=== PATIENT | female | born 1950 | race American Indian/Alaskan Native ===

== ENCOUNTER 2016-11-27 21:58 | Emergency (ER) | payer MEDICARE ==
[2016-11-27 22:15] VITALS: BP 144/76
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
[2016-11-28] MEDS ORDERED: NORCO 5/325 ONE (02:17)
[2016-11-28] MEDS ORDERED: NORCO 5/325 PO ONE (02:19)
== END 2016-11-28 02:06 | disposition home or self-care (01) ==
LOC: ED 21:58
DX: M17.9 Osteoarthritis of knee, unspecified (principal); G89.29 Other chronic pain; H66.002 Acute suppurative otitis media without spontaneous rupture of ear drum, left ear; I10 Essential (primary) hypertension; I25.2 Old myocardial infarction; K21.9 Gastro-esophageal reflux disease without esophagitis; M19.90 Unspecified osteoarthritis, unspecified site; J45.909 Unspecified asthma, uncomplicated; Z90.49 Acquired absence of other specified parts of digestive tract; Z90.710 Acquired absence of both cervix and uterus; Z98.51 Tubal ligation status; Z87.891 Personal history of nicotine dependence; Z79.82 Long term (current) use of aspirin
CPT/HCPCS: 99282

== ENCOUNTER 2017-02-03 18:47 | Emergency (ER) | payer MEDICARE ==
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
[2017-02-03] MEDS ORDERED: MORPHINE IM ONE (23:26)
[2017-02-03] MEDS ORDERED: DECADRON IM ONE (23:26)
[2017-02-03] MEDS ORDERED: FLEXERIL PO ONE (23:27)
[2017-02-04 00:57] VITALS: BP 142/84
== END 2017-02-04 00:58 | disposition home or self-care (01) ==
LOC: ED 18:47
DX: M54.5 Low back pain (principal); I10 Essential (primary) hypertension; I25.2 Old myocardial infarction; E11.9 Type 2 diabetes mellitus without complications; K21.9 Gastro-esophageal reflux disease without esophagitis; M19.90 Unspecified osteoarthritis, unspecified site; J45.909 Unspecified asthma, uncomplicated; G89.29 Other chronic pain; Z79.82 Long term (current) use of aspirin; Z88.8 Allergy status to other drugs, medicaments and biological substances; Z88.1 Allergy status to other antibiotic agents; W57.XXXA Bitten or stung by nonvenomous insect and other nonvenomous arthropods, initial encounter; Y93.89 Activity, other specified; Y99.9 Unspecified external cause status; Y92.89 Other specified places as the place of occurrence of the external cause
CPT/HCPCS: 96372; 99282; J1100; J2270

== ENCOUNTER 2017-03-22 18:46 | Emergency (ER) | payer MEDICARE ==
[2017-03-22 20:51] LABS: Basophils % (Auto) 0.6 % (0.0-1.8); Eosinophils % (Auto) 2.1 % (0.0-4.3); Hematocrit 39.6 % (30.3-42.9); Hemoglobin 12.5 gm/dl (10.1-14.3); Mean Corpuscular HGB Conc 32 % (30-34); Mean Corpuscular Volume 73 fl (79-97); Platelet Count 330 K/mm3 (140-440); Red Blood Count 5.45 M/mm3 (3.65-5.03); Red Cell Distribution Width 15.6 % (13.2-15.2); White Blood Count 7.9 K/mm3 (4.5-11.0)
[2017-03-22 20:53] LABS: Mean Corpuscular Hemoglobin 23 pg (28-32)
[2017-03-22 21:03] LABS: Alanine Aminotransferase 19 units/L (7-56); Albumin 4.1 g/dL (3.9-5); Albumin/Globulin Ratio 1.1 %; Alkaline Phosphatase 79 units/L (35-129); Anion Gap 17 mmol/L; BUN/Creatinine Ratio 31.66; Blood Urea Nitrogen 19 mg/dL (7-17); Calcium 9.6 mg/dL (8.4-10.2); Carbon Dioxide 28 mmol/L (22-30); Chloride 98.7 mmol/L (98-107); Glucose 87 mg/dL (65-100); Lipase 49 units/L (13-60); Potassium 4.5 mmol/L (3.6-5.0); Sodium 139 mmol/L (137-145); Total Protein 7.7 g/dL (6.3-8.2)
[2017-03-22 22:00] LABS: Bilirubin,Urine NEG (Negative); Blood,Urine NEG (Negative); Ketones,Urine NEG (Negative); Leukocyte Esterase,Urine TR (Negative); Mucus,Urine FEW /HPF; Nitrite,Urine NEG (Negative); Protein,Urine <15 mg/dL mg/dL (Negative); Urobilinogen,Urine < 2.0 mg/dL (<2.0)
[2017-03-22] MEDS ORDERED: ZOFRAN IV ONE (23:47)
[2017-03-22] MEDS ORDERED: NACL 0.9% 1000 ML 1,000 ML IV ONE (23:47)
[2017-03-23] MEDS ORDERED: ZOFRAN IV ONE (01:24)
[2017-03-23] MEDS ORDERED: TORADOL IV ONE (01:24)
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
[2017-03-23 01:50] VITALS: BP 132/73
== END 2017-03-23 04:09 | disposition home or self-care (01) ==
LOC: ED 18:46
DX: R11.2 Nausea with vomiting, unspecified (principal); I10 Essential (primary) hypertension; I25.2 Old myocardial infarction; K21.9 Gastro-esophageal reflux disease without esophagitis; J45.909 Unspecified asthma, uncomplicated
CPT/HCPCS: 36415; 80053; 81001; 83690; 85025; 96361; 96374; 96375; 99283; J1885; J2405; J7030

== ENCOUNTER 2017-04-28 09:23 | Emergency (ER) | payer MEDICARE ==
[2017-04-28 09:40] VITALS: BP 109/59
[2017-04-28] MEDS ORDERED: NORCO 10/325 PO ONE (11:56)
[2017-04-28] MEDS ORDERED: FLEXERIL PO ONE (11:56)
[2017-04-28] MEDS ORDERED: TORADOL IM ONE (11:56)
[2017-04-28] MEDS ORDERED: ZOFRAN ODT PO ONE (12:35)
[2017-04-28] MEDS ORDERED: MORPHINE IM ONE (12:35)
--- NOTE | 2017-04-28 12:44 | XRay Report ---
Right knee 3 views. Findings: There is mild narrowing of the joint space especially medially. Bony mineralization is normal. There are no fractures or other acute findings. Impression: Mild osteoarthritis.
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
== END 2017-04-28 14:01 | disposition home or self-care (01) ==
LOC: ED 09:23
DX: M17.11 Unilateral primary osteoarthritis, right knee (principal); I10 Essential (primary) hypertension; K21.9 Gastro-esophageal reflux disease without esophagitis; J45.909 Unspecified asthma, uncomplicated; I25.2 Old myocardial infarction; Z87.891 Personal history of nicotine dependence; Z79.82 Long term (current) use of aspirin; Z88.0 Allergy status to penicillin; Z88.1 Allergy status to other antibiotic agents; Z88.8 Allergy status to other drugs, medicaments and biological substances
CPT/HCPCS: 73562; 96372; 99283; J1885; J2270; Q0162

== ENCOUNTER 2017-06-02 12:50 | Emergency (ER) | payer MEDICARE ==
[2017-06-02] MEDS ORDERED: PERCOCET 5/325 PO ONE (16:08)
[2017-06-02] MEDS ORDERED: ZOFRAN ODT PO ONE (16:10)
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
[2017-06-02 18:14] VITALS: BP 145/72
== END 2017-06-02 18:13 | disposition home or self-care (01) ==
LOC: ED 12:50
DX: M25.569 Pain in unspecified knee (principal); M54.9 Dorsalgia, unspecified; G89.29 Other chronic pain
CPT/HCPCS: 99282; Q0162

== ENCOUNTER 2017-06-10 12:06 | Emergency (ER) | payer MEDICARE ==
[2017-06-10] MEDS ORDERED: PERCOCET 5/325 PO ONE (16:55)
--- NOTE | 2017-06-10 18:02 | XRay Report ---
FINAL REPORT PROCEDURE: XR SPINE LUMBOSACRAL 2-3V TECHNIQUE: Lumbar spine, three views HISTORY: lower back pain chronic COMPARISON: No prior studies are available for comparison. FINDINGS: There is 9 millimeters anterolisthesis of L5 on S1, with adjacent significant endplate sclerosis and disc space narrowing. There may be pars interarticularis defects of L5, which would be better assessed with oblique views. No scoliosis. There is note of unfused posterior elements of L5. IMPRESSION: 9 millimeters anterolisthesis of L5 on S1 with associated significant degenerative disc changes. Possible L5 pars interarticularis defects, which would be better assessed with oblique views.
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
[2017-06-10 18:32] LABS: Urine Drugs of Abuse Note Disclamer
[2017-06-10 18:41] VITALS: BP 166/79
--- NOTE | 2017-06-11 11:16 | Vascular Lab Report ---
LEFT UPPER EXTREMITY VENOUS DUPLEX: REASON FOR EXAM: Pain of the left upper extremity COMMENTS ON THE LEFT: All arm veins visualized are freely compressible without evidence of internal echogenicity. The subclavian and internal jugular veins are free of thrombus. Flow is spontaneous and phasic throughout. COMMENTS ON THE RIGHT: The subclavian and internal jugular veins are free of thrombus. IMPRESSION: No evidence of acute or chronic deep venous thrombosis in the left upper extremity.
== END 2017-06-10 18:55 | disposition home or self-care (01) ==
LOC: ED 12:06
DX: M15.3 Secondary multiple arthritis (principal); G89.29 Other chronic pain; I10 Essential (primary) hypertension; I25.2 Old myocardial infarction; K21.9 Gastro-esophageal reflux disease without esophagitis; J45.909 Unspecified asthma, uncomplicated; Z87.891 Personal history of nicotine dependence; Z79.82 Long term (current) use of aspirin; Z88.1 Allergy status to other antibiotic agents; Z88.8 Allergy status to other drugs, medicaments and biological substances
CPT/HCPCS: 72100; 80307

== ENCOUNTER 2017-11-06 15:33 | Emergency (ER) | payer MEDICARE ==
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
[2017-11-06] MEDS ORDERED: DUONEB *Not for PRN Use IH ONE (20:49)
--- NOTE | 2017-11-06 20:49 | Emergency Department Report ---
Chief Complaint: Upper Respiratory Infection Stated Complaint: VOMITING/DIARRHEA/CHEST COLD Time Seen by Provider: 11/06/17 20:12 - HPI History of Present Illness: 67-year-old female past medical history arthritis asthma GERD MO hypertension kidney stones angina CAD presents with complaint of 4-5 days of bodyaches nasal congestion nausea and diarrhea. Patient awake alert and oriented 3 complaining of slightly productive cough and nasal drainage. - ROS Review of Systems: 4-5 days of body aches, upper respiratory symptoms - Exam Vital Signs: Vital Signs 11/06/17 17:22 Temperature 98.4 F Pulse Rate 103 H Respiratory 16 Rate Blood Pressure 119/71 O2 Sat by Pulse 97 Oximetry Physical Exam: Wheezing on auscultation bilaterally MSE screening note: Focused history and physical exam performed. Due to findings the following was ordered: Screening Assessment/Plan/Differential Dx: Possible flu illness, asthma exacerbation 1- This initial assessment/diagnostic orders/clinical plan/ treatment(s) is/are subject to change based on pt's health status, clinical progression and re- assessment by fellow clinical providers in the ED. Further treatment and workup at subsequent clinical provers discretion. Patient/guardians urged not to elope from ED as their condition may be serious if not clinically assessed and managed. 2-flu swab sent, chest x-ray, labs 3-nebulizer treatment, oral fluid resuscitation ED Disposition for MSE Condition: Stable Referrals: SANJAY YAP MD [Primary Care Provider] - 3-5 Days
--- NOTE | 2017-11-06 20:59 | XRay Report ---
FINAL REPORT EXAM: XR CHEST ROUTINE 2V HISTORY: persistent cough worsening TECHNIQUE: 2 views of the chest. PRIORS: 09/30/2016 FINDINGS: The cardiomediastinal silhouette appears normal. The lungs are clear. The bones and soft tissues are unremarkable. IMPRESSION: No evidence of acute cardiopulmonary disease
[2017-11-06 21:27] LABS: Hematocrit 43.3 % (30.3-42.9); Hemoglobin 13.4 gm/dl (10.1-14.3); Lymphocytes # (Auto) 2.2 K/mm3 (1.2-5.4); Lymphocytes % (Auto) 46.2 % (13.4-35.0); Mean Corpuscular HGB Conc 31 % (30-34); Mean Corpuscular Volume 72 fl (79-97); Monocytes # (Auto) 0.6 K/mm3 (0.0-0.8); Monocytes % (Auto) 13.2 % (0.0-7.3); Platelet Count 304 K/mm3 (140-440); Red Blood Count 6.04 M/mm3 (3.65-5.03)
[2017-11-06 21:28] LABS: Mean Corpuscular Hemoglobin 22 pg (28-32)
[2017-11-06 21:49] LABS: BUN/Creatinine Ratio 28; Blood Urea Nitrogen 25 mg/dL (7-17); Calcium 9.7 mg/dL (8.4-10.2); Hemolysis Index 3
[2017-11-06] MEDS ORDERED: ATROVENT IH ONE (22:03)
[2017-11-06] MEDS ORDERED: XOPENEX IH ONE (22:03)
[2017-11-06] MEDS ORDERED: NACL 0.9% 1000 ML 1,000 ML IV ONE (22:17)
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
[2017-11-06] MEDS ORDERED: TESSALON PERLES PO ONE (22:19)
[2017-11-06] MEDS ORDERED: NORCO 5/325 PO ONE (22:54)
[2017-11-07 06:54] VITALS: BP 137/61
== END 2017-11-06 23:40 | disposition home or self-care (01) ==
LOC: ED 15:33
DX: J09.X2 Influenza due to identified novel influenza A virus with other respiratory manifestations (principal); I10 Essential (primary) hypertension; I25.2 Old myocardial infarction; K21.9 Gastro-esophageal reflux disease without esophagitis; Z87.891 Personal history of nicotine dependence
CPT/HCPCS: 36415; 71046; 80048; 82550; 85025; 87400; 87491; 93005; 93010; 94640; 94644; 96360; 99284; J7030

== ENCOUNTER 2017-11-21 11:42 | Observation (INO) | payer MEDICARE ==
[2017-11-21] MEDS ORDERED: ASPIRIN PO ONE (12:09)
[2017-11-21 13:09] LABS: Basophils # (Auto) 0.1 K/mm3 (0.0-0.1); Basophils % (Auto) 1.1 % (0.0-1.8); Eosinophils # (Auto) 0.1 K/mm3 (0.0-0.4); Eosinophils % (Auto) 1.2 % (0.0-4.3); Hematocrit 40.2 % (30.3-42.9); Lymphocytes # (Auto) 1.9 K/mm3 (1.2-5.4); Lymphocytes % (Auto) 31.5 % (13.4-35.0); Mean Corpuscular HGB Conc 32 % (30-34); Mean Corpuscular Hemoglobin 23 pg (28-32); Mean Corpuscular Volume 72 fl (79-97); Monocytes # (Auto) 0.6 K/mm3 (0.0-0.8); Monocytes % (Auto) 10.2 % (0.0-7.3); Platelet Count 368 K/mm3 (140-440); Red Blood Count 5.59 M/mm3 (3.65-5.03); Red Cell Distribution Width 16.1 % (13.2-15.2)
[2017-11-21 13:27] LABS: BUN/Creatinine Ratio 13; Blood Urea Nitrogen 8 mg/dL (7-17); Calcium 9.5 mg/dL (8.4-10.2); Hemolysis Index 8
[2017-11-21] MEDS ORDERED: ZOFRAN IM ONE (15:29)
[2017-11-21] MEDS ORDERED: MORPHINE IM ONE (15:29)
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
[2017-11-21] MEDS ORDERED: ALUM-MAG HYDROX-SIMETH 200-200-20MG/5ML PO ONE (17:42)
--- NOTE | 2017-11-21 17:42 | XRay Report ---
FINAL REPORT EXAM: XR CHEST 1V AP HISTORY: chest pain TECHNIQUE: AP portable view of the chest PRIORS: CXR 11/06/2017, 09/30/2016 FINDINGS: Lines, tubes, and devices: N/A Lungs and pleura: Trachea is normal in position. New markings in the right lung base are suspicious for atelectasis or pneumonia. There is no evidence for pleural effusion, vascular congestion, or pneumothorax. Cardiomediastinal silhouette: Cardiac and mediastinal silhouettes are unremarkable. Other: Bony structures are intact. IMPRESSION: New markings in the right lung base suspicious for atelectasis or pneumonia.
[2017-11-21] MEDS ORDERED: PEPCID PO ONE (17:55)
[2017-11-21] MEDS ORDERED: NITRO-BID 2% TP ONE (20:22)
[2017-11-21] MEDS ORDERED: MILK OF MAGNESIA PO ONE (21:36)
[2017-11-21] MEDS ORDERED: NITROSTAT SL PRN (21:41)
[2017-11-21] MEDS ORDERED: SODIUM CHLORIDE FLUSH SYRINGE 10 ML IV PRN (21:41)
[2017-11-21] MEDS ORDERED: MILK OF MAGNESIA ONE (21:45)
[2017-11-21] MEDS ORDERED: ZOFRAN IV PRN (21:55)
[2017-11-21] MEDS ORDERED: TESSALON PERLES PO PRN (22:03)
[2017-11-21] MEDS ORDERED: PROAIR IH PRN (22:03)
[2017-11-21 22:41] LABS: BUN/Creatinine Ratio 17; Blood Urea Nitrogen 10 mg/dL (7-17); Calcium 8.9 mg/dL (8.4-10.2); Hemolysis Index 8
[2017-11-22] MEDS ORDERED: PROVENTIL IH PRN (00:13)
[2017-11-22] MEDS: DILAUDID IV PRN ×3 (00:31→14:13)
[2017-11-22 01:07] LABS: Creatine Kinase MB 1.3 ng/mL (0.0-4.0)
[2017-11-22] MEDS: NITRO-BID 2% TP SCH ×4 (06:28→17:27)
[2017-11-22 06:44] LABS: Creatine Kinase MB 1.1 ng/mL (0.0-4.0)
--- NOTE | 2017-11-22 08:49 | History and Physical Report ---
CHIEF COMPLAINT: Chest pain. HISTORY OF PRESENT ILLNESS: This is a 67-year-old female who said she has been having chest pain since a day prior to presentation with pain radiating to the back and was associated with shortness of breath. There is a history of nausea, but no vomiting. There is also history of cough. The patient said the pain feels like the pain of angina, presented to the Emergency Room. There is history of diaphoresis, but no history of dizziness. The patient was evaluated and presented for admission. PAST MEDICAL HISTORY: Pertinent for hypertension, coronary artery disease status post myocardial infarct, diabetes mellitus, gastroesophageal reflux disease, osteoarthritis, kidney stones, asthma. PAST SURGICAL HISTORY: Pertinent for cholecystectomy, right eye surgery, hysterectomy. There is a procedure on the heart and tubal ligation as well as carpal tunnel surgery with colonic polyps. FAMILY HISTORY: Noncontributory. SOCIAL HISTORY: The patient is a former smoker, but does not smoke currently. Does not use illicit drugs and does not drink alcohol. MEDICATIONS: The patient is on thiazide 25 mg by mouth daily, [place] 7.5/325 mg 1 by mouth every 6 hours as needed for pain, Protonix 40 mg by mouth daily as well as albuterol inhalers 2 puffs 4 times a day, benztropine 100 mg by mouth 3 times a day as well as [place] 5/325, 1-2 by mouth every 6 hours. The patient is also on Tamiflu 75 mg by mouth twice daily. ALLERGIES: THE PATIENT IS ALLERGIC TO AZITHROMYCIN, BUTORPHANOL TARTRATE, CYCLOBENZAPRINE, AND OTHER MEDICATIONS THAT ARE NOT LISTED. REVIEW OF SYSTEMS: CONSTITUTIONAL: There is no fever, no chills. Diaphoresis present. HEENT: There is no headache or sore throat. CARDIOVASCULAR: Chest pain present. No orthopnea. RESPIRATORY: Shortness of breath present. Cough present. GASTROINTESTINAL: There is nausea, but no vomiting, no abdominal pain, diarrhea or constipation. NEUROLOGICAL: There is no numbness, no dizziness, no altered mental status. MUSCULOSKELETAL: Show no joint pain or swelling. DERMATOLOGICAL: There is no skin rash or itching. GENITOURINARY: There is no dysuria, hematuria or flank pain. Rest of system review is normal. PHYSICAL EXAMINATION: GENERAL: At the time of exam, the patient was found to be alert, oriented x 3 in mild due to chest. VITAL SIGNS: Shows normal temperature with pulse of 82, blood pressure 122/86, O2 sat of 99% in room air. HEENT: Showed pupils to be equal, round, reactive to light and accommodation. Extraocular muscles are intact. NECK: Supple with no JVD or carotid bruit. CARDIOVASCULAR: Showed normal first and second heart sounds with no gallops or murmurs. RESPIRATORY: Show good air entry on both sides of the lung with no abnormal breath sounds. GASTROINTESTINAL: Show abdomen to be full, soft, nontender with no organomegaly or rigidity. NEUROLOGICAL: Shows no focal deficit. MUSCULOSKELETAL: Show no joint swelling or tenderness. DERMATOLOGICAL: Show no change, no skin rash or itching. GENITOURINARY: Showing no costovertebral angle tenderness. PERTINENT LABORATORY AND IMAGING STUDIES: The patient had chest x-ray done that shows new markings in the right lung base suspicious atelectasis or pneumonia. The patient's lab shows CBC with normal white count, normal hemoglobin, normal hematocrit with CBC differential being unremarkable. The patient's D-dimer level came back normal. Chemistry was unremarkable. First level of troponin came back normal. Brain natriuretic peptide was unremarkable. DIAGNOSIS: Chest pain. PLAN: The patient will be admitted to telemetry using chest protocol. Will have serial cardiac enzymes done q. 6 hours x 2 more levels. The patient will be on nitro paste half-inch to anterior chest wall 4 times a day and will be on sublingual nitroglycerin for breakthrough chest pain. The patient will be on Dilaudid 1 mg every 4 hours IV as needed for pain and IV Zofran 4 mg every 6 hours for nausea and vomiting. The patient will be on p.r.n. medications like Tylenol 650 mg by mouth every 4 hours as needed for fever and headache and will be on home medications as shown in the medication reconciliation section. The patient will also be on aspirin 325 mg by mouth daily and will remain n.p.o. for pharmacological stress test in the morning. The patient will also be on oxygen by nasal cannula at 2 liters per minute per chest pain protocol. JOB# [id number] OCN/NTS
[2017-11-22] MEDS ORDERED: PROTONIX PO SCH (10:00)
[2017-11-22] MEDS ORDERED: LOVENOX SUB-Q SCH (10:00)
[2017-11-22] MEDS ORDERED: ECOTRIN PO SCH (10:00)
[2017-11-22] MEDS ORDERED: HCTZ PO SCH (10:00)
[2017-11-22] MEDS: TAMIFLU PO SCH ×2 (10:17→21:58)
[2017-11-22] MEDS ORDERED: LEVAQUIN PO SCH (12:00)
--- NOTE | 2017-11-22 17:02 | Progress Note ---
Assessment and Plan Assessment and plan: 67-year-old female recent diagnosis of influenza presents to the hospital with generalized chest wall pain reproducible associated with cough had been diagnosed with influenza and started on Tamiflu but did not take the medication on discharge to previous admission. Now with suspected atelectasis versus pneumonia Atypical chest pain likely costochondritis Resolving post-influenza pneumonia Hypertension CAD GERD Osteoarthritis Plan Continue supportive care Pain control Start on Levaquin Chest x-ray reviewed shows possible atelectasis versus pneumonia will also add incentive spirometer Anticipated discharge in a.m. Lower extremity Doppler did not reveal any DVT Extensive counseling provided to the patient greater than 15 minutes and remained to be compliant with medications. Resume appropriate home medications History Interval history: Patient seen and examined this morning reports that she did not take the Tamiflu that was ordered for her previously because she does not believe this medications work she prefers herbal medications. But she likes to Dilaudid as it is the only one that takes away her pain. She states "I raise my hand on thank God of Viagra before as shOT and it took away my pain" Hospitalist Physical - Physical exam Narrative exam: VITAL SIGNS: Reviewed. GENERAL: The patient appeared well nourished and normally developed. Vital signs as documented. HEAD: No signs of head trauma. EYES: Pupils are equal. Extraocular motions intact. EARS: Hearing grossly intact. MOUTH: Oropharynx is normal. NECK: No adenopathy, no JVD. CHEST: Chest with clear breath sounds bilaterally. No wheezes, rales, or rhonchi. CARDIAC: Regular rate and rhythm. S1 and S2, without murmurs, gallops, or rubs. VASCULAR: No Edema. Peripheral pulses normal and equal in all extremities. ABDOMEN: Soft, without detectable tenderness. No sign of distention. No rebound or guarding, and no masses palpated. Bowel Sounds normal. MUSCULOSKELETAL: Generalized tenderness in the musculoskeletal area across the chest on palpation Good range of motion of all major joints. Extremities without clubbing, cyanosis. Trace edema of the right lower extremity . NEUROLOGIC EXAM: Alert and oriented x 3. No focal sensory or strength deficits. Speech normal. Follows commands. PSYCHIATRIC: Mood normal. SKIN: No rash or lesions. - Constitutional Vitals: Temp Pulse Resp BP Pulse Ox 97.9 F 77 16 136/80 93 11/22/17 12:45 11/22/17 12:45 11/22/17 09:00 11/22/17 12:45 11/22/17 09:00 Results - Labs CBC & Chem 7: 11/21/17 12:52 11/21/17 22:27 Labs: Laboratory Last Values WBC 6.1 K/mm3 (4.5-11.0) 11/21/17 12:52 RBC 5.59 M/mm3 (3.65-5.03) H 11/21/17 12:52 Hgb 13.0 gm/dl (10.1-14.3) 11/21/17 12:52 Hct 40.2 % (30.3-42.9) 11/21/17 12:52 MCV 72 fl (79-97) L 11/21/17 12:52 MCH 23 pg (28-32) L 11/21/17 12:52 MCHC 32 % (30-34) 11/21/17 12:52 RDW 16.1 % (13.2-15.2) H 11/21/17 12:52 Plt Count 368 K/mm3 (140-440) 11/21/17 12:52 Lymph % (Auto) 31.5 % (13.4-35.0) 11/21/17 12:52 [place] % (Auto) 10.2 % (0.0-7.3) H 11/21/17 12:52 Eos % (Auto) 1.2 % (0.0-4.3) 11/21/17 12:52 Baso % (Auto) 1.1 % (0.0-1.8) 11/21/17 12:52 Lymph # 1.9 K/mm3 (1.2-5.4) 11/21/17 12:52 Titus # 0.6 K/mm3 (0.0-0.8) 11/21/17 12:52 Eos # 0.1 K/mm3 (0.0-0.4) 11/21/17 12:52 Baso # 0.1 K/mm3 (0.0-0.1) 11/21/17 12:52 Seg Neutrophils % 56.0 % (40.0-70.0) 11/21/17 12:52 Seg Neutrophils # 3.4 K/mm3 (1.8-7.7) 11/21/17 12:52 D-Dimer 222.79 ng/mlDDU (0-234) 11/21/17 17:46 Sodium 140 mmol/L (137-145) 11/21/17 22:27 Potassium 3.7 mmol/L (3.6-5.0) 11/21/17 22:27 Chloride 97.4 mmol/L (98-107) L 11/21/17 22:27 Carbon Dioxide 31 mmol/L (22-30) H 11/21/17 22:27 Anion Gap 15 mmol/L 11/21/17 22:27 BUN 10 mg/dL (7-17) 11/21/17 22:27 Creatinine 0.6 mg/dL (0.7-1.2) L 11/21/17 22:27 Estimated GFR > 60 ml/min 11/21/17 22:27 BUN/Creatinine Ratio 17 % 11/21/17 22:27 Glucose 118 mg/dL (65-100) H 11/21/17 22:27 Calcium 8.9 mg/dL (8.4-10.2) 11/21/17 22:27 Total Creatine Kinase 77 units/L (30-135) 11/22/17 05:19 CK-MB (CK-2) 1.1 ng/mL (0.0-4.0) 11/22/17 05:19 Troponin T < 0.010 ng/mL (0.00-0.029) 11/22/17 13:08 NT-Pro-B Natriuret Pep 39.10 pg/mL (0-900) 11/21/17 17:46
[2017-11-23 04:45] VITALS: BP 119/59
[2017-11-23] MEDS: NITRO-BID 2% TP SCH (06:15)
--- NOTE | 2017-11-23 09:27 | Discharge Summary ---
Providers - Providers Date of Admission: 11/21/17 21:18 Attending physician: MUNA RODRIGUEZ MD 11/21/17 Consult to Cardiac Rehabilitation [CONS] Routine Reason For Exam: Phase I Primary care physician: DEBBI MATA Hospitalization Reason for admission: chest pain Condition: Stable Hospital course: 67-year-old female recent diagnosis of influenza presents to the hospital with generalized chest wall pain reproducible associated with cough had been diagnosed with influenza and started on Tamiflu but did not take the medication on discharge to previous admission. Now with suspected atelectasis versus pneumonia. patient was treated with antiobiodiccs and also a few hours. She likely will go home with a Peg; Discharge diagnosis Atypical chest pain likely costochondritis Resolving post-influenza pneumonia Hypertension CAD GERD Osteoarthritis Disposition: TO HOME OR SELFCARE Time spent for discharge: 35 mins Core Measure Documentation - Palliative Care Palliative Care/ Comfort Measures: Not Applicable - Core Measures Any of the following diagnoses?: none - VTE Discharge Requirements Deep Vein Thrombosis/Pulmonary Embolism Present on Admission: No Exam - Physical Exam Narrative exam: VITAL SIGNS: Reviewed. GENERAL: The patient appeared well nourished and normally developed. Vital signs as documented. HEAD: No signs of head trauma. EYES: Pupils are equal. Extraocular motions intact. EARS: Hearing grossly intact. MOUTH: Oropharynx is normal. NECK: No adenopathy, no JVD. CHEST: Chest with clear breath sounds bilaterally. No wheezes, rales, or rhonchi. CARDIAC: Regular rate and rhythm. S1 and S2, without murmurs, gallops, or rubs. VASCULAR: No Edema. Peripheral pulses normal and equal in all extremities. ABDOMEN: Soft, without detectable tenderness. No sign of distention. No rebound or guarding, and no masses palpated. Bowel Sounds normal. MUSCULOSKELETAL: Generalized tenderness in the musculoskeletal area across the chest on palpation Good range of motion of all major joints. Extremities without clubbing, cyanosis. Trace edema of the right lower extremity . NEUROLOGIC EXAM: Alert and oriented x 3. No focal sensory or strength deficits. Speech normal. Follows commands. PSYCHIATRIC: Mood normal. SKIN: No rash or lesions. - Constitutional Vitals: Temp Pulse Resp BP Pulse Ox 97.5 F L 79 19 119/59 97 11/23/17 04:41 11/23/17 08:20 11/23/17 04:41 11/23/17 04:41 11/23/17 04:41 Plan Activity: advance as tolerated, fall precautions Diet: low fat Special Instructions: record daily weights, record daily BP diary, smoking cessation Follow up with: DEBBI MATA MD [Primary Care Provider] - 7 Days KVNG CASTELLANOS MD [Staff Physician] - 7 Days MOIRA FAULKNER MD [Staff Physician] - 7 Days Prescriptions: Benzonatate [Tessalon Perles] 100 mg PO TID PRN #14 capsule PRN Reason: Cough Famotidine [Pepcid] 20 mg PO BID #60 tablet Levofloxacin [Levaquin TAB] 750 mg PO Q24HR #5 tablet Oseltamivir [Tamiflu] 75 mg PO BID #6 capsule traMADol [Ultram] 50 mg PO Q6HR PRN #14 tablet PRN Reason: Pain
--- NOTE | 2017-11-25 09:06 | Vascular Lab Report ---
RIGHT UPPER EXTREMITY VENOUS DUPLEX: REASON FOR EXAM: Deep venous thrombus of the right upper extremity COMMENTS ON THE RIGHT: There is an acute partially occlusive short segment superficial venous thrombus in the right upper arm cephalic vein near the antecubital fossa. The remaining veins visualized are freely compressible without evidence of internal echogenicity. Spontaneous and phasic flow is present proximally. COMMENTS ON THE LEFT: The subclavian and internal jugular veins are free of thrombus. IMPRESSION: No evidence of acute or chronic deep venous thrombosis in the right upper extremity. There is a acute short segment superficial venous thrombus in the right upper arm cephalic vein near the antecubital fossa. This is near the patient's IV site.
== END 2017-11-23 11:42 | disposition home or self-care (01) ==
LOC: ED 11:42 → 3A 21:18 → INTOOBSV 21:18 → 4A 22:40
PROVIDERS: ADMIT Internal Medicine; ATTEND Internal Medicine
DX: R07.89 Other chest pain (principal); I10 Essential (primary) hypertension; I25.10 Atherosclerotic heart disease of native coronary artery without angina pectoris; I25.2 Old myocardial infarction; E11.9 Type 2 diabetes mellitus without complications; K21.9 Gastro-esophageal reflux disease without esophagitis; M19.90 Unspecified osteoarthritis, unspecified site; J45.909 Unspecified asthma, uncomplicated; Z87.442 Personal history of urinary calculi; Z87.891 Personal history of nicotine dependence; Z90.710 Acquired absence of both cervix and uterus; Z90.49 Acquired absence of other specified parts of digestive tract
CPT/HCPCS: 36415; 71045; 80048; 82550; 82553; 83880; 84484; 85025; 85379; 93005; 93010; 93971; 96372; 96374; 96376; 99285; 99406; G0378; J1170; J1650; J2270; J2405

== ENCOUNTER 2018-04-19 10:23 | Emergency (ER) | payer MEDICARE, MEDICAID ==
[2018-04-19 11:02] VITALS: BP 145/72
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
[2018-04-19 13:18] LABS: Bilirubin,Urine NEG (Negative); Blood,Urine SM (Negative); Color,Urine Yellow (Yellow); Protein,Urine <15 mg/dL mg/dL (Negative); Urobilinogen,Urine < 2.0 mg/dL (<2.0)
== END 2018-04-19 12:24 | disposition home or self-care (01) ==
LOC: ED 10:23
DX: I10 Essential (primary) hypertension (principal); K21.9 Gastro-esophageal reflux disease without esophagitis; J45.909 Unspecified asthma, uncomplicated; I20.9 Angina pectoris, unspecified; M54.9 Dorsalgia, unspecified; G89.29 Other chronic pain; Z87.891 Personal history of nicotine dependence; Z79.82 Long term (current) use of aspirin; Z88.1 Allergy status to other antibiotic agents; Z88.8 Allergy status to other drugs, medicaments and biological substances
CPT/HCPCS: 81001; 93005; 93010; 99283

== ENCOUNTER 2018-12-04 09:56 | Outpatient (CLI) | payer MEDICARE ==
--- NOTE | 2018-12-04 10:25 | XRay Report ---
ROUTINE CHEST, TWO VIEWS: HISTORY: Encounter for screening for respiratory tuberculosis. The trachea, heart, mediastinal contour, lung dickson and bony thorax are unremarkable. No significant change since 08/16/18. IMPRESSION: Unremarkable chest x-ray.
== END 2018-12-04 09:57 | disposition home or self-care (01) ==
LOC: XRAY 09:56
PROVIDERS: ATTEND Family Medicine
DX: Z11.1 Encounter for screening for respiratory tuberculosis (principal); E11.9 Type 2 diabetes mellitus without complications; J45.909 Unspecified asthma, uncomplicated; K21.9 Gastro-esophageal reflux disease without esophagitis; E66.01 Morbid (severe) obesity due to excess calories; I11.0 Hypertensive heart disease with heart failure; I50.9 Heart failure, unspecified; E78.00 Pure hypercholesterolemia, unspecified; M19.90 Unspecified osteoarthritis, unspecified site; Z90.49 Acquired absence of other specified parts of digestive tract; Z90.710 Acquired absence of both cervix and uterus; Z87.891 Personal history of nicotine dependence
CPT/HCPCS: 71046

== ENCOUNTER 2019-03-27 14:33 | Emergency (ER) | payer MEDICARE ==
[2019-03-27 14:41] VITALS: BP 148/68
[2019-03-27] MEDS ORDERED: ROBAXIN IM ONE (15:35)
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
[2019-03-27] MEDS ORDERED: IBUPROFEN PO ONE (15:55)
== END 2019-03-27 16:16 | disposition home or self-care (01) ==
LOC: ED 14:33
DX: G89.29 Other chronic pain (principal); M54.9 Dorsalgia, unspecified; M25.562 Pain in left knee; M25.561 Pain in right knee; I11.0 Hypertensive heart disease with heart failure; I50.9 Heart failure, unspecified; K21.9 Gastro-esophageal reflux disease without esophagitis; M19.90 Unspecified osteoarthritis, unspecified site; J45.909 Unspecified asthma, uncomplicated; Z90.49 Acquired absence of other specified parts of digestive tract; Z98.51 Tubal ligation status; Z88.6 Allergy status to analgesic agent; Z88.1 Allergy status to other antibiotic agents; Z88.8 Allergy status to other drugs, medicaments and biological substances; Z79.899 Other long term (current) drug therapy
CPT/HCPCS: 99282

== ENCOUNTER 2019-07-04 06:20 | Observation (INO) | payer MEDICARE ==
[2019-07-04] MEDS ORDERED: ASPIRIN PO ONE (06:34)
[2019-07-04 07:30] LABS: BUN/Creatinine Ratio 27; Blood Urea Nitrogen 19 mg/dL (7-17); Hemolysis Index 3
[2019-07-04 07:42] LABS: Basophils # (Auto) 0.1 K/mm3 (0.0-0.1); Basophils % (Auto) 0.7 % (0.0-1.8); Eosinophils # (Auto) 0.1 K/mm3 (0.0-0.4); Eosinophils % (Auto) 1.3 % (0.0-4.3); Hematocrit 34.8 % (30.3-42.9); Lymphocytes # (Auto) 2.9 K/mm3 (1.2-5.4); Lymphocytes % (Auto) 37.6 % (13.4-35.0); Mean Corpuscular HGB Conc 32 % (30-34); Mean Corpuscular Volume 72 fl (79-97); Monocytes # (Auto) 0.8 K/mm3 (0.0-0.8); Monocytes % (Auto) 10.7 % (0.0-7.3); Platelet Count 308 K/mm3 (140-440); Red Blood Count 4.81 M/mm3 (3.65-5.03); Red Cell Distribution Width 18.1 % (13.2-15.2)
--- NOTE | 2019-07-04 09:04 | XRay Report ---
CHEST 2 VIEWS INDICATION: Chest Pain. COMPARISON: 12/04/2018 report. The images are not available. FINDINGS: Support devices: None. Heart: Within normal limits. Lungs/pleura: No acute air space or interstitial disease. No evidence for pleural effusion or pneumo thorax. Mild central pulmonary venous congestion is suspected. Additional findings: None. IMPRESSION: Mild pulmonary venous congestion. Signer Name: Jori Rosado Jr, MD Signed: 07/04/2019 9:00 AM Workstation Name: [id number]
[2019-07-04] MEDS ORDERED: NORCO 5/325 PO ONE (09:54)
[2019-07-04] MEDS ORDERED: ZOFRAN ODT PO ONE (09:54)
--- NOTE | 2019-07-04 09:57 | Cat Scan Report ---
CT HEAD WITHOUT CONTRAST INDICATION : headache. TECHNIQUE: Axial imaging performed from the skull apex through the skull base without the use of con trast. All CT scans at this location are performed using CT dose reduction for ALARA by means of aut omated exposure control. COMPARISON: 08/18/2018 FINDINGS: Parenchyma: No acute intracranial hemorrhage or parenchymal abnormality. Ventricles: Ventricles are normal in size and appear symmetric. Soft tissues: Soft tissues including the orbits appear normal. Bones: No acute osseous abnormality. Sinuses: Sinuses and mastoid air cells are clear. IMPRESSION: Normal study. Signer Name: Bruno Wallace MD Signed: 07/04/2019 9:53 AM Workstation Name: [id number]
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
[2019-07-04] MEDS ORDERED: BABY ASPIRIN PO ONE ×2 (10:14→10:21)
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
[2019-07-04] MEDS ORDERED: ASPIRIN ONE (10:50)
[2019-07-04] MEDS ORDERED: PROAIR IH PRN (10:59)
[2019-07-04] MEDS ORDERED: TESSALON PERLES PO PRN (10:59)
[2019-07-04] MEDS ORDERED: NITROSTAT SL PRN (11:00)
[2019-07-04] MEDS ORDERED: SODIUM CHLORIDE FLUSH SYRINGE 10 ML IV PRN (11:00)
--- NOTE | 2019-07-04 11:08 | History and Physical Report ---
History of Present Illness Date of examination: 07/04/19 Date of admission: 07/04/19 10:15 Chief complaint: Chest pain History of present illness: 68-year-old -[place] female with past medical history significant for hypertension, arthritis, asthma, CAD, arthritis, DM presented to the emergency department complaining of intermittent chest pain of 4 days' duration. Pain is on both sides of the chest, pressure-like, 10 out of 10 in intensity at its max, with no radiation, associated with shortness of breath, and diaphoresis. Chest pain is worsened with exertion and relieved with rest. Patient has occasional cough. Patient has a temperature of 99.9 which is not fever. Cardiac enzymes were negative, EKG was sinus rhythm. ANDRES score is 4. Patient will be admitted to the floor, cardiology consulted, stress test will be ordered. REVIEW OF SYSTEMS: GENERAL: no weight change, no fatigue, no fever HEAD: no head ache EYES: no blurry vision, no acute visual loss EARS: no hearing loss, no discharge, no earache NOSE: no stuffiness, no sneezing, no discharge MOUTH, THROAT AND NECK: no bleeding gums, no sore throat, no swollen neck CARDIAC: As stated in the HPI. RESPIRATORY:+shortness of breath, no wheeze, no cough, no sputum, no hemoptysis, no asthma GI: no decreased appetite, no nausea, no vomiting, no dysphagia, no diarrhea, no constipation, no abdominal pain URINARY: no change in frequency, no urgency, no polyuria, no hematuria, no incontinence MUSCULOSKELETAL: no muscle weakness, no pain, no joint stiffness NEUROLOGIC: no loss of sensation/numbness, no tingling, no tremors, no weakness/paralysis HEMATOLOGIC: no anemia, no easy bruising SKIN: no rashes ENDOCRINE: no heat/cold intolerance, no polyuria, no polydipsia, no thyroid problems, no diabetes PSYCHIATRIC: no anxiety, no depression, no suicidal ideations Past History Past Medical History: arthritis, CAD, diabetes, hypertension Past Surgical History: cholecystectomy, hysterectomy Social history: smoking (quit 5 months ago), full code. denies: alcohol abuse, prescription drug abuse, IV drug use Family history: CAD (father and sister), cancer (colon, monther and sister) Medications and Allergies Allergies Allergy/AdvReac Type Severity Reaction Status Date / Time azithromycin [From Zithromax] Allergy Rash Verified 03/27/19 14:35 butorphanol tartrate Allergy Rash Verified 03/27/19 14:35 [From Stadol] cyclobenzaprine Allergy Unknown Verified 07/04/19 06:36 [From Flexeril] cyclobenzaprine HCl Allergy Seizure Verified 03/27/19 14:35 [From Flexeril] ibuprofen [From Motrin] Allergy Vomiting Verified 07/04/19 06:36 meperidine HCl [From Demerol] Allergy Rash Verified 03/27/19 14:35 naproxen Allergy Seizure Verified 03/27/19 14:35 tramadol Allergy Unknown Verified 07/04/19 06:36 acetaminophen [From Tylenol] AdvReac Nausea Verified 03/27/19 14:35 Home Medications Medication Instructions Recorded Confirmed Last Taken Type hydroCHLOROthiazide [HCTZ] 25 mg PO DAILY 02/15/15 07/04/19 07/03/19 History ALBUTEROL Inhaler (OR & NICU) 2 puff IH QID PRN #1 inhalation 11/06/17 07/04/19 07/03/19 Rx [ProAir HFA Inhaler] Aspirin [Aspirin BABY CHEW TAB] 81 mg PO ONCE 11/21/17 07/04/19 07/03/19 History Famotidine [Pepcid] 20 mg PO BID #60 tablet 11/23/17 07/04/19 07/03/19 Rx Promethazine [Phenergan SUPPOS] 25 mg [place] Q6HR PRN #10 supp.rect 04/19/18 07/04/19 07/03/19 Rx Active Meds: Active Medications Albuterol (Proair) 2 puff IH QID PRN PRN Reason: Shortness Of Breath Aspirin (Baby Aspirin) 81 mg PO ONCE ALFONSO Aspirin (Baby Aspirin) 81 mg PO QDAY ALFONSO Atorvastatin Calcium (Lipitor) 40 mg PO QHS ALFONSO Benzonatate (Tessalon Perles) 100 mg PO TID PRN PRN Reason: Cough Famotidine (Pepcid) 20 mg PO BID ALFONSO Metoprolol Tartrate (Lopressor) 25 mg PO BID ALFONSO Morphine Sulfate (Morphine) 2 mg IV Q4H PRN PRN Reason: Chest Pain unrelieved by NTG Nitroglycerin (Nitrostat) 0.4 mg SL Q5M PRN PRN Reason: Chest Pain Sodium Chloride (Sodium Chloride Flush Syringe 10 Ml) 10 ml IV PRN PRN PRN Reason: LINE FLUSH Tramadol HCl (Ultram) 50 mg PO Q6HR PRN PRN Reason: Pain Zolpidem Tartrate (Ambien) 5 mg PO QHS PRN PRN Reason: Sleep Exam - Physical Exam Narrative exam: Not in cardiopulmonary distress. The patient is obese. Vital signs as documented. Head exam is unremarkable. No scleral icterus . Neck is without jugular venous distension, thyromegaly, or carotid bruits. Lungs are clear to auscultation. Cardiac exam reveals regular rate and Rhythm. First and second heart sounds normal. No murmurs, rubs or gallops. Abdominal exam reveals normal bowel sounds, no masses, no organomegaly and no aortic enlargement. Extremities are nonedematous and both femoral and pedal pulses are normal. PAIRER SUBSTANDARD: Alert and oriented 3. No focal weakness. - Constitutional Vitals: Temp Pulse Resp BP Pulse Ox 98.3 F 72 13 112/51 98 07/04/19 06:32 07/04/19 10:39 07/04/19 10:39 07/04/19 10:39 07/04/19 10:39 Results - Labs CBC & Chem 7: 07/04/19 11:14 07/04/19 11:14 Labs: Laboratory Last Values WBC 7.8 K/mm3 (4.5-11.0) 07/04/19 06:52 RBC 4.81 M/mm3 (3.65-5.03) 07/04/19 06:52 Hgb 11.0 gm/dl (10.1-14.3) 07/04/19 06:52 Hct 34.8 % (30.3-42.9) 07/04/19 06:52 MCV 72 fl (79-97) L 07/04/19 06:52 MCH 23 pg (28-32) L 07/04/19 06:52 MCHC 32 % (30-34) 07/04/19 06:52 RDW 18.1 % (13.2-15.2) H 07/04/19 06:52 Plt Count 308 K/mm3 (140-440) 07/04/19 06:52 Lymph % (Auto) 37.6 % (13.4-35.0) H 07/04/19 06:52 [place] % (Auto) 10.7 % (0.0-7.3) H 07/04/19 06:52 Eos % (Auto) 1.3 % (0.0-4.3) 07/04/19 06:52 Baso % (Auto) 0.7 % (0.0-1.8) 07/04/19 06:52 Lymph # 2.9 K/mm3 (1.2-5.4) 07/04/19 06:52 [place] # 0.8 K/mm3 (0.0-0.8) 07/04/19 06:52 Eos # 0.1 K/mm3 (0.0-0.4) 07/04/19 06:52 Baso # 0.1 K/mm3 (0.0-0.1) 07/04/19 06:52 Seg Neutrophils % 49.7 % (40.0-70.0) 07/04/19 06:52 Seg Neutrophils # 3.8 K/mm3 (1.8-7.7) 07/04/19 06:52 Sodium 138 mmol/L (137-145) 07/04/19 06:52 Potassium 3.9 mmol/L (3.6-5.0) 07/04/19 06:52 Chloride 101.5 mmol/L (98-107) 07/04/19 06:52 Carbon Dioxide 28 mmol/L (22-30) 07/04/19 06:52 12 mmol/L 07/04/19 06:52 BUN 19 mg/dL (7-17) H 07/04/19 06:52 0.7 mg/dL (0.7-1.2) 07/04/19 06:52 Estimated GFR > 60 ml/min 07/04/19 06:52 27 % 07/04/19 06:52 Glucose 105 mg/dL (65-100) H 07/04/19 06:52 Calcium 9.0 mg/dL (8.4-10.2) 07/04/19 06:52 < 0.010 ng/mL (0.00-0.029) 07/04/19 09:20 NT-Pro-B Natriuret Pep 41.76 pg/mL (0-900) 07/04/19 09:24 Assessment and Plan Assessment and plan: Chest pain -Cardiac enzymes were negative, EKG was normal - ANDRES score 4 - Cardiology consulted and stress test ordered - Pain control Hypertension - Continue medication Asthma -Breathing treatment as needed Diabetes mellitus - ADA diet, Accu-Chek - Blood Sugar is normal continue to monitor, start sliding scale insulin if needed DVT prophylaxis - On heparin Disposition - Admit to medical floor for observation Advance Directives: Yes VTE prophylaxis?: Chemical Plan of care discussed with patient/family: Yes
[2019-07-04] MEDS ORDERED: PROVENTIL IH PRN (11:28)
[2019-07-04 11:34] LABS: Basophils # (Auto) 0.1 K/mm3 (0.0-0.1); Basophils % (Auto) 0.8 % (0.0-1.8); Eosinophils # (Auto) 0.1 K/mm3 (0.0-0.4); Eosinophils % (Auto) 1.1 % (0.0-4.3); Hematocrit 34.8 % (30.3-42.9); Hemoglobin 11.3 gm/dl (10.1-14.3); Lymphocytes % (Auto) 28.6 % (13.4-35.0); Mean Corpuscular HGB Conc 32 % (30-34); Mean Corpuscular Volume 71 fl (79-97); Monocytes # (Auto) 0.8 K/mm3 (0.0-0.8); Monocytes % (Auto) 10.8 % (0.0-7.3); Platelet Count 302 K/mm3 (140-440); Red Blood Count 4.88 M/mm3 (3.65-5.03); Red Cell Distribution Width 17.7 % (13.2-15.2)
[2019-07-04 11:55] LABS: BUN/Creatinine Ratio 23; Blood Urea Nitrogen 14 mg/dL (7-17); Calcium 9.3 mg/dL (8.4-10.2); Hemolysis Index 4
[2019-07-04] MEDS ORDERED: ULTRAM PO PRN (12:00)
[2019-07-04] MEDS ORDERED: BABY ASPIRIN PO SCH (12:00)
--- NOTE | 2019-07-04 13:12 | Consultation ---
History of Present Illness Consult date: 07/04/19 Requesting physician: ANJEL SCALES Consult reason: chest pain History of present illness: The patient is a 68 year old female with a past medical history of reported AMI (one in 2004 with subsequent LHC - no intervention required - at [facility] per pt report) HTN, DM and recurrent atypical chest pain. She has been seen by our practice on prior hospitalizations but has not been compliant with OP follow up. She presented with c/o chest pain since Tuesday. She describes her pain as an intermittent nonexertional stabbing pain which occurs under her left breast and on the right side of her chest and sometimes in her epigastric area. The pain is somewhat reproducible with palpation of the chest wall. The pain was associated with some nausea and vomiting this AM. She denies any SOB, palpitations, diaphoresis, dizziness or syncope. She also c/o headache. Echo done 07/2017 showed EF 55-60%. Lexiscan MPI stress test done 07/2017 was negative. LHC done 07/2018 showed normal coronaries. Past History Past Medical History: diabetes, hypertension Medications and Allergies Allergies Allergy/AdvReac Type Severity Reaction Status Date / Time azithromycin [From Zithromax] Allergy Rash Verified 03/27/19 14:35 butorphanol tartrate Allergy Rash Verified 03/27/19 14:35 [From Stadol] cyclobenzaprine Allergy Unknown Verified 07/04/19 06:36 [From Flexeril] cyclobenzaprine HCl Allergy Seizure Verified 03/27/19 14:35 [From Flexeril] ibuprofen [From Motrin] Allergy Vomiting Verified 07/04/19 06:36 meperidine HCl [From Demerol] Allergy Rash Verified 03/27/19 14:35 naproxen Allergy Seizure Verified 03/27/19 14:35 tramadol Allergy Unknown Verified 07/04/19 06:36 acetaminophen [From Tylenol] AdvReac Nausea Verified 03/27/19 14:35 Home Medications Medication Instructions Recorded Confirmed Last Taken Type hydroCHLOROthiazide [HCTZ] 25 mg PO DAILY 02/15/15 07/04/19 07/03/19 History ALBUTEROL Inhaler (OR & NICU) 2 puff IH QID PRN #1 inhalation 11/06/17 07/04/19 07/03/19 Rx [ProAir HFA Inhaler] Aspirin [Aspirin BABY CHEW TAB] 81 mg PO ONCE 11/21/17 07/04/19 07/03/19 History Famotidine [Pepcid] 20 mg PO BID #60 tablet 11/23/17 07/04/19 07/03/19 Rx Promethazine [Phenergan SUPPOS] 25 mg [place] Q6HR PRN #10 supp.rect 04/19/1807/0407/03/19 Rx Active Meds: Active Medications Albuterol (Proventil) 2.5 mg IH Q4HRT PRN PRN Reason: Shortness Of Breath Aspirin (Baby Aspirin) 81 mg PO ONCE ALFONSO Aspirin (Baby Aspirin) 81 mg PO QDAY ALFONSO Atorvastatin Calcium (Lipitor) 40 mg PO QHS ALFONSO Benzonatate (Tessalon Perles) 100 mg PO TID PRN PRN Reason: Cough Famotidine (Pepcid) 20 mg PO BID ALFONSO Metoprolol Tartrate (Lopressor) 25 mg PO BID ALFONSO Morphine Sulfate (Morphine) 2 mg IV Q4H PRN PRN Reason: Chest Pain unrelieved by NTG Nitroglycerin (Nitrostat) 0.4 mg SL Q5M PRN PRN Reason: Chest Pain Sodium Chloride (Sodium Chloride Flush Syringe 10 Ml) 10 ml IV PRN PRN PRN Reason: LINE FLUSH Stop: 07/14/19 10:59 Tramadol HCl (Ultram) 50 mg PO Q6HR PRN PRN Reason: Pain Zolpidem Tartrate (Ambien) 5 mg PO QHS PRN PRN Reason: Sleep Review of Systems Constitutional: no weight loss, no weight gain, no fever, no chills, no sweats Ears, nose, mouth and throat: no ear pain, no nose pain, no sinus pressure, no sinus pain Cardiovascular: chest pain, high blood pressure, no orthopnea, no palpitations, no rapid/irregular heart beat, no edema, no syncope, no lightheadedness, no shortness of breath, no dyspnea on exertion, no leg edema Respiratory: no cough, no shortness of breath, no dyspnea on exertion, no congestion, no wheezing, no pain on inspiration Gastrointestinal: nausea, vomiting, no abdominal pain, no diarrhea, no constipation, no change in bowel habits Genitourinary Female: no pelvic pain, no flank pain, no dysuria, no urinary frequency, no urgency Musculoskeletal: no neck stiffness, no neck pain, no shooting arm pain, no arm numbness/tingling, no low back pain, no shooting leg pain Integumentary: no rash, no pruritis, no redness, no sores, no wounds Neurological: no head injury, no paralysis, no weakness, no parathesias, no numbness, no tingling, no seizures, no syncope Psychiatric: no anxiety Endocrine: no cold intolerance, no heat intolerance Hematologic/Lymphatic: no easy bruising, no easy bleeding Allergic/Immunologic: no urticaria, no wheezing Physical Examination Vital Signs Temp Pulse Resp BP Pulse Ox 98.3 F 77 16 143/62 98 07/04/19 06:32 07/04/19 06:32 07/04/19 06:32 07/04/19 06:32 07/04/19 06:32 General appearance: no acute distress HEENT: Positive: PERRL, Normocephaly, Mucus Membranes Moist Neck: Positive: neck supple, trachea midline Cardiac: Positive: Reg Rate and Rhythm, S1/S2 Lungs: Positive: Decreased Breath Sounds Neuro: Positive: Grossly Intact Abdomen: Negative: Tender Skin: Negative: Rash Musculoskeletal: No Pain Extremities: Absent: edema Results 07/04/19 11:14 07/04/19 11:14 CBC 07/04/19 07/04/19 Range/Units 06:52 11:14 WBC 7.8 7.0 (4.5-11.0) K/mm3 RBC 4.81 4.88 (3.65-5.03) M/mm3 Hgb 11.0 11.3 (10.1-14.3) gm/dl Hct 34.8 34.8 (30.3-42.9) % Plt Count 308 302 (140-440) K/mm3 Lymph # 2.9 2.0 (1.2-5.4) K/mm3 [place] # 0.8 0.8 (0.0-0.8) K/mm3 Eos # 0.1 0.1 (0.0-0.4) K/mm3 Baso # 0.1 0.1 (0.0-0.1) K/mm3 Comprehensive Metabolic Panel 07/04/19 07/04/19 Range/Units 06:52 11:14 Sodium 138 137 (137-145) mmol/L Potassium 3.9 4.1 (3.6-5.0) mmol/L Chloride 101.5 98.3 (98-107) mmol/L Carbon Dioxide 28 28 (22-30) mmol/L BUN 19 H 14 (7-17) mg/dL Creatinine 0.7 0.6 L (0.7-1.2) mg/dL Glucose 105 H 103 H (65-100) mg/dL Calcium 9.0 9.3 (8.4-10.2) mg/dL - Imaging and Cardiology Echo: report reviewed (07/2017 showed EF 55-60%. ) Cardiac cath: report reviewed ( 07/2018 showed normal coronaries.) EKG: report reviewed, image reviewed EKG interpretations - Telemetry EKG Rhythm: Sinus Rhythm - EKG Sinus rhythms and dysrhythmias: sinus rhythm Assessment and Plan Assessment: Recurrent atypical chest pain H/o normal coronaries Reported h/o AMI HTN DM H/o asthma Obesity Plan: Pt presented with recurrent atypical chest pain. LHC done 07/2018 showed normal coronaries. ECG with NAF, Kiesha negative for AMI x 2 sets. Will plan for lexiscan MPI stress test in AM. NPO after MN. Obtain echo. Further recs to follow per hospital course. The patient has been seen in conjunction with Dr. Flroa Kumar who agrees with the assessment and plan of care.
[2019-07-04] MEDS ORDERED: D50W (25GM) Syringe IV PRN (13:52)
[2019-07-04] MEDS ORDERED: NITROSTAT SL ONE (13:52)
[2019-07-04] MEDS: MORPHINE IV PRN (14:05)
[2019-07-04] MEDS ORDERED: MORPHINE ONE (14:10)
[2019-07-04] MEDS: HumaLOG SUB-Q SCH ×2 (18:16→22:01)
[2019-07-04] MEDS: HEPARIN SUB-Q SCH ×3 (18:16→22:03)
[2019-07-04] MEDS: LOPRESSOR PO SCH ×2 (21:59→22:04)
[2019-07-04] MEDS: PEPCID PO SCH (21:59)
[2019-07-04] MEDS: AMBIEN PO PRN (22:00)
[2019-07-05] MEDS ORDERED: LEXISCAN IV ONE (07:52)
[2019-07-05] MEDS: HEPARIN SUB-Q SCH ×2 (08:01→14:50)
[2019-07-05] MEDS: HumaLOG SUB-Q SCH ×2 (08:30→12:43)
[2019-07-05] MEDS ORDERED: BABY ASPIRIN PO SCH (10:00)
--- NOTE | 2019-07-05 10:21 | Progress Note ---
Assessment and Plan Assessment: Recurrent atypical chest pain - currently resolved H/o normal coronaries - LHC done 07/2018 showed normal coronaries Reported h/o AMI HTN DM H/o asthma Obesity Plan: S/p lexiscan MPI stress test this AM which was negative. Currently stable cardiac status. Pt may discharge home from cardiology standpoint. Recommend follow up in our office with Dr. Kumar within 1-2 weeks of hospital discharge ([phone]). The patient has been seen in conjunction with Dr. Flora Kumar who agrees with the assessment and plan of care. Subjective Date of service: 07/05/19 Principal diagnosis: cp Interval history: pt for stress test, no current complaints. Objective Last Vital Signs Temp 97.6 F 07/05/19 03:53 Pulse 74 07/05/19 03:53 Resp 18 07/05/19 03:53 BP 118/63 07/05/19 03:53 Pulse Ox 95 07/05/19 03:53 - Physical Examination General: No Apparent Distress HEENT: Positive: PERRL, Normocephaly, Mucus Membranes Moist Neck: Positive: neck supple, trachea midline Cardiac: Positive: Reg Rate and Rhythm, S1/S2 Lungs: Positive: Decreased Breath Sounds Neuro: Positive: Grossly Intact Abdomen: Negative: Tender Skin: Negative: Rash Musculoskeletal: No Pain Extremities: Absent: edema - Labs and Meds CBC 07/04/19 Range/Units 11:14 WBC 7.0 (4.5-11.0) K/mm3 RBC 4.88 (3.65-5.03) M/mm3 Hgb 11.3 (10.1-14.3) gm/dl Hct 34.8 (30.3-42.9) % Plt Count 302 (140-440) K/mm3 Lymph # 2.0 (1.2-5.4) K/mm3 [place] # 0.8 (0.0-0.8) K/mm3 Eos # 0.1 (0.0-0.4) K/mm3 Baso # 0.1 (0.0-0.1) K/mm3 Comprehensive Metabolic Panel 07/04/19 Range/Units 11:14 Sodium 137 (137-145) mmol/L Potassium 4.1 (3.6-5.0) mmol/L Chloride 98.3 (98-107) mmol/L Carbon Dioxide 28 (22-30) mmol/L BUN 14 (7-17) mg/dL Creatinine 0.6 L (0.7-1.2) mg/dL Glucose 103 H (65-100) mg/dL Calcium 9.3 (8.4-10.2) mg/dL - Imaging and Cardiology EKG: report reviewed, image reviewed Echo: report reviewed (07/2017 showed EF 55-60%. ) Cardiac cath: report reviewed ( 07/2018 showed normal coronaries.) - Telemetry EKG Rhythm: Sinus Rhythm - EKG Sinus rhythms and dysrhythmias: sinus rhythm
[2019-07-05] MEDS: PEPCID PO SCH (11:15)
[2019-07-05] MEDS: LOPRESSOR PO SCH (11:16)
[2019-07-05] MEDS: AMBIEN PO PRN (11:16)
[2019-07-05 11:17] VITALS: BP 130/60
--- NOTE | 2019-07-05 12:18 | Discharge Summary ---
Providers - Providers Date of Admission: 07/04/19 10:15 Date of discharge: 07/05/19 Attending physician: ANJEL SCALES MD 07/04/19 Consult to Cardiac Rehabilitation [CONS] Routine Reason For Exam: Phase I 07/04/19 11:03 Consult to Cardiology [CONS] Routine Consulting Provider: LUISA AREVALO Reason For Exam: recurrent chest pain Primary care physician: SANJAY YAP Hospitalization Reason for admission: chest pain Condition: Good Pertinent studies: stress test Hospital course: 68-year-old -Norwegian female with past medical history significant for hypertension, arthritis, asthma, CAD, arthritis, DM presented to the emergency department complaining of intermittent chest pain of 4 days' duration. Pain is on both sides of the chest, pressure-like, 10 out of 10 in intensity at its max, with no radiation, associated with shortness of breath, and diaphoresis. Chest pain is worsened with exertion and relieved with rest. Patient has occasional cough. Patient has a temperature of 99.9 which is not fever. Cardiac enzymes were negative, EKG was sinus rhythm. ANDRES score is 4. Patient will be admitted to the floor, cardiology consulted, stress test will be ordered. Patient admitted to the floor and cardiac enzymes were negative, ECG NSR and stress test was done and was negative. Chest pain resolved. Patient discharged home with the advice to have f/u with PCP and cardiology. patient was hemodynamically stable at the time of discharge. Disposition: - TO HOME OR SELFCARE Time spent for discharge: 32 minutes - Discharge Diagnoses (1) Atypical chest pain Status: Acute Comment: due to GERD (2) Asthma Status: Chronic Qualifiers: Asthma persistence: unspecified (3) Chronic back pain Status: Chronic (4) Diabetes Status: Chronic (5) HTN (hypertension) Status: Chronic Qualifiers: Hypertension type: essential hypertension Qualified Code(s): I10 - Essential (primary) hypertension (6) Obesity (BMI 30-39.9) Status: Chronic (7) History of coronary artery disease Status: Suspected Core Measure Documentation - Palliative Care Palliative Care/ Comfort Measures: Not Applicable - Core Measures Any of the following diagnoses?: none Exam - Physical Exam Narrative exam: Not in cardiopulmonary distress. The patient is obese. Vital signs as documented. Head exam is unremarkable. No scleral icterus . Neck is without jugular venous distension, thyromegaly, or carotid bruits. Lungs are clear to auscultation. Cardiac exam reveals regular rate and Rhythm. First and second heart sounds normal. No murmurs, rubs or gallops. Abdominal exam reveals normal bowel sounds, no masses, no organomegaly and no aortic enlargement. Extremities are nonedematous and both femoral and pedal pulses are normal. PURCHASING SUPERVISOR: Alert and oriented 3. No focal weakness. - Constitutional Vitals: Temp Pulse Resp BP Pulse Ox 97.6 F 82 18 130/60 95 07/05/19 03:53 07/05/19 11:16 07/05/19 03:53 07/05/19 11:16 07/05/19 03:53 Plan Activity: no restrictions Weight Bearing Status: Full Weight Bearing Diet: low cholesterol, low salt Follow up with: SANJAY YAP MD [Primary Care Provider] - 3-5 Days LUISA AREVALO MD [Staff Physician] - 10 Days Prescriptions: AtorvaSTATin [Lipitor] 40 mg PO QHS #30 tablet Aspirin [Aspirin BABY CHEW TAB] 81 mg PO ONCE #30 tab.chew metFORMIN [Glucophage] 500 mg PO BID #60 tablet Famotidine [Pepcid] 20 mg PO BID #30 tablet
[2019-07-05] MEDS: MORPHINE IV PRN (12:44)
--- NOTE | 2019-07-05 23:04 | Treadmill Report ---
REFERRING PHYSICIAN: Hospitalist Service. PROCEDURE: Nuclear perfusion scan. PROTOCOL: The patient was brought to the stress lab in a postoperative state, given 10 mCi of technetium 99m at rest. The patient underwent rest imaging. The patient underwent Lexiscan stress test. At peak stress, the patient was given 26 mCi of technetium 99m. Shortly thereafter, the patient underwent stress imaging. Raw imaging reveals mild GI artifact. No significant motion artifact. SPECT images examined carefully in horizontal long axis, vertical long axis, short axis views. There is normal homogenous uptake of radioisotope in all reported segments. No evidence of a significant fixed or reversible perfusion defect suggestive of prior infarction or ischemia. Gated wall motion reveals normal systolic thickening, calculated ejection fraction of 68%, no TID. CONCLUSIONS: 1. Normal myocardial perfusion scan without evidence of active ischemia or prior infarction. 2. Normal left ventricular systolic performance without evidence of transient ischemic dilatation or stress-induced segmental wall motion abnormalities. 3. Normal Lexiscan stress test without evidence of diagnostic ST changes; arrhythmias or chest pain during stress or recovery. JOB# [id number] MICHELLE/ERIC
== END 2019-07-05 16:25 | disposition home or self-care (01) ==
LOC: ED 06:20 → 4A 10:15
PROVIDERS: ADMIT Internal Medicine; ATTEND Internal Medicine
DX: R07.89 Other chest pain (principal); R11.2 Nausea with vomiting, unspecified; I10 Essential (primary) hypertension; J45.909 Unspecified asthma, uncomplicated; E11.9 Type 2 diabetes mellitus without complications; M19.90 Unspecified osteoarthritis, unspecified site; E66.9 Obesity, unspecified; I25.10 Atherosclerotic heart disease of native coronary artery without angina pectoris; Z90.49 Acquired absence of other specified parts of digestive tract; Z90.710 Acquired absence of both cervix and uterus; Z87.891 Personal history of nicotine dependence; Z79.82 Long term (current) use of aspirin; Z68.35 Body mass index [BMI] 35.0-35.9, adult
CPT/HCPCS: 36415; 70450; 71046; 78452; 80048; 82962; 83880; 84484; 85025; 93005; 93010; 93017; 96374; 96376; 99284; A9270; A9502; G0378; J2270; J2785; J1644; Q0162

== ENCOUNTER 2019-09-16 07:37 | Emergency (ER) | payer MEDICARE ==
[2019-09-16] MEDS ORDERED: MORPHINE 2 MG/1 ML INJ IV ONE (10:14)
[2019-09-16] MEDS ORDERED: ASPIRIN 325 MG TAB PO ONE (10:14)
[2019-09-16] MEDS ORDERED: NITROGLYCERIN 0.4 MG TAB SUBL SL ONE (10:14)
[2019-09-16] MEDS ORDERED: SODIUM CHLORIDE 0.9% 1000 ML 1,000 ML IV ONE (10:14)
[2019-09-16] MEDS ORDERED: ONDANSETRON 4 MG/2 ML INJ IV ONE (10:30)
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
--- NOTE | 2019-09-16 11:20 | XRay Report ---
CHEST 1 VIEW 09/16/2019 10:14 AM INDICATION / CLINICAL INFORMATION: Chest Pain. Cough. COMPARISON: 2 views of the chest from 07/04/2019. FINDINGS: SUPPORT DEVICES: None. HEART / MEDIASTINUM: Cardiac size is normal with stable prominence of the central vasculature. LUNGS / PLEURA: There is probable bibasilar atelectasis. The upper lungs are clear. No significant pl eural effusion. No pneumothorax. ADDITIONAL FINDINGS: No significant additional findings. IMPRESSION: 1. Probable bibasilar atelectasis. 2. Stable prominence of the central vasculature. Signer Name: Vahid Camacho MD Signed: 09/16/2019 11:15 AM Workstation Name: [id number]
--- NOTE | 2019-09-16 11:23 | XRay Report ---
LEFT HIP 2 VIEWS INDICATION / CLINICAL INFORMATION: Left hip pain. COMPARISON: None available. FINDINGS: BONES and JOINT(S): No acute fracture or subluxation. No significant arthritis. SOFT TISSUES: No significant abnormality. ADDITIONAL FINDINGS: None. IMPRESSION: No significant abnormality of the left hip. Signer Name: Vahid Camacho MD Signed: 09/16/2019 11:18 AM Workstation Name: [id number]
[2019-09-16 12:21] LABS: Basophils % (Auto) 0.6 % (0.0-1.8); Eosinophils # (Auto) 0.1 K/mm3 (0.0-0.4); Eosinophils % (Auto) 1.4 % (0.0-4.3); Hematocrit 36.9 % (30.3-42.9); Hemoglobin 11.6 gm/dl (10.1-14.3); Lymphocytes # (Auto) 2.3 K/mm3 (1.2-5.4); Lymphocytes % (Auto) 37.1 % (13.4-35.0); Mean Corpuscular HGB Conc 31 % (30-34); Mean Corpuscular Volume 72 fl (79-97); Monocytes # (Auto) 0.7 K/mm3 (0.0-0.8); Monocytes % (Auto) 11.5 % (0.0-7.3); Platelet Count 323 K/mm3 (140-440); Red Blood Count 5.14 M/mm3 (3.65-5.03); Red Cell Distribution Width 16.2 % (13.2-15.2)
[2019-09-16 12:31] LABS: INR 1.01 (0.87-1.13)
[2019-09-16 12:32] LABS: Partial Thromboplastin Time 28.1 Sec. (24.2-36.6)
[2019-09-16 12:42] LABS: Bacteria,Urine 1+ /HPF (Negative); Bilirubin,Urine NEG (Negative); Blood,Urine NEG (Negative); Color,Urine Yellow (Yellow); Mucus,Urine FEW /HPF; Protein,Urine <15 mg/dL mg/dL (Negative); Urobilinogen,Urine < 2.0 mg/dL (<2.0)
[2019-09-16 12:48] LABS: Alanine Aminotransferase 16 units/L (7-56); Albumin 4.3 g/dL (3.9-5); BUN/Creatinine Ratio 19; Blood Urea Nitrogen 13 mg/dL (7-17); Calcium 9.5 mg/dL (8.4-10.2); Hemolysis Index 3
[2019-09-16 12:51] VITALS: BP 132/60
== END 2019-09-16 13:55 | disposition home or self-care (01) ==
LOC: ED 07:37
DX: S76.012A Strain of muscle, fascia and tendon of left hip, initial encounter (principal); R07.89 Other chest pain; J20.8 Acute bronchitis due to other specified organisms; I11.0 Hypertensive heart disease with heart failure; I50.9 Heart failure, unspecified; I25.2 Old myocardial infarction; K21.9 Gastro-esophageal reflux disease without esophagitis; M19.90 Unspecified osteoarthritis, unspecified site; F17.200 Nicotine dependence, unspecified, uncomplicated; Z90.710 Acquired absence of both cervix and uterus; Z98.51 Tubal ligation status; Z79.899 Other long term (current) drug therapy; Z88.1 Allergy status to other antibiotic agents; Z88.6 Allergy status to analgesic agent; Z88.8 Allergy status to other drugs, medicaments and biological substances; X58.XXXA Exposure to other specified factors, initial encounter; Y93.89 Activity, other specified; Y92.89 Other specified places as the place of occurrence of the external cause; Y99.8 Other external cause status
CPT/HCPCS: 36415; 71045; 73502; 80053; 81001; 83690; 84484; 85025; 85610; 85730; 93005; 93010; 96374; 96375; 99284; J2270; J2405; J7030

== ENCOUNTER 2019-11-07 14:07 | Emergency (ER) | payer MEDICARE ==
[2019-11-07 14:21] VITALS: BP 151/75
--- NOTE | 2019-11-07 15:33 | Emergency Department Report ---
Blank Doc - Documentation Documentation: 69-year-old female that presents with left flank pain. This initial assessment/diagnostic orders/clinical plan/treatment(s) is/are subject to change based on patient's health status, clinical progression and re- assessment by fellow clinical providers in the ED. Further treatment and workup at subsequent clinical providers discretion. Patient/guardians urged not to elope from the ED as their condition may be serious if not clinically assessed and managed. Initial orders include: 1- Patient sent to [facility] for further evaluation and treatment 2- UA
[2019-11-07 16:04] LABS: Bilirubin,Urine NEG (Negative); Blood,Urine NEG (Negative); Color,Urine Yellow (Yellow); Mucus,Urine FEW /HPF; Protein,Urine <15 mg/dL mg/dL (Negative); Urobilinogen,Urine < 2.0 mg/dL (<2.0)
[2019-11-07] MEDS ORDERED: dexAMETHasone 4 MG/ML VIAL IM ONE (16:48)
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
== END 2019-11-07 18:08 | disposition home or self-care (01) ==
LOC: ED 14:07
DX: N64.4 Mastodynia (principal); M54.9 Dorsalgia, unspecified; G89.29 Other chronic pain; Z98.890 Other specified postprocedural states; Z88.1 Allergy status to other antibiotic agents; Z88.8 Allergy status to other drugs, medicaments and biological substances
CPT/HCPCS: 81001; 87086; 96372; 99283; J1100

== ENCOUNTER 2020-02-04 11:59 | Emergency (ER) | payer MEDICARE ==
[2020-02-04] MEDS ORDERED: ASPIRIN 325 MG TAB PO ONE (12:09)
--- NOTE | 2020-02-04 13:50 | XRay Report ---
CHEST 2 VIEWS INDICATION / CLINICAL INFORMATION: Chest Pain. COMPARISON: Chest radiograph 09/16/2019 FINDINGS: SUPPORT DEVICES: None. HEART / MEDIASTINUM: No significant abnormality. LUNGS / PLEURA: No significant pulmonary or pleural abnormality. No pneumothorax. ADDITIONAL FINDINGS: No significant additional findings. IMPRESSION: No acute finding. Signer Name: Rayo Hartley MD Signed: 02/04/2020 1:46 PM Workstation Name: [id number]
[2020-02-04 13:52] LABS: Basophils # (Auto) 0.1 K/mm3 (0.0-0.1); Basophils % (Auto) 0.8 % (0.0-1.8); Eosinophils # (Auto) 0.1 K/mm3 (0.0-0.4); Eosinophils % (Auto) 1.1 % (0.0-4.3); Hematocrit 41.4 % (30.3-42.9); Lymphocytes # (Auto) 2.4 K/mm3 (1.2-5.4); Lymphocytes % (Auto) 36.7 % (13.4-35.0); Mean Corpuscular HGB Conc 31 % (30-34); Mean Corpuscular Volume 72 fl (79-97); Monocytes # (Auto) 0.6 K/mm3 (0.0-0.8); Monocytes % (Auto) 9.6 % (0.0-7.3); Platelet Count 350 K/mm3 (140-440); Red Blood Count 5.73 M/mm3 (3.65-5.03); Red Cell Distribution Width 17.2 % (13.2-15.2)
[2020-02-04 14:14] LABS: BUN/Creatinine Ratio 38; Blood Urea Nitrogen 23 mg/dL (7-17); Calcium 10.1 mg/dL (8.4-10.2); Hemolysis Index 2
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
[2020-02-04 16:23] VITALS: BP 127/72
== END 2020-02-04 14:56 | disposition home or self-care (01) ==
LOC: ED 11:59
DX: I20.8 Other forms of angina pectoris (principal); I11.0 Hypertensive heart disease with heart failure; I50.9 Heart failure, unspecified; I25.2 Old myocardial infarction; K21.9 Gastro-esophageal reflux disease without esophagitis; J45.909 Unspecified asthma, uncomplicated; M19.90 Unspecified osteoarthritis, unspecified site; Z90.49 Acquired absence of other specified parts of digestive tract; Z87.442 Personal history of urinary calculi; Z90.710 Acquired absence of both cervix and uterus; Z79.899 Other long term (current) drug therapy; Z88.8 Allergy status to other drugs, medicaments and biological substances; Z98.51 Tubal ligation status; Z98.890 Other specified postprocedural states; Z87.891 Personal history of nicotine dependence
CPT/HCPCS: 36415; 71046; 80048; 84484; 85025; 93005; 93010

== ENCOUNTER 2020-08-22 21:29 | Observation (INO) | payer MEDICARE ==
[2020-08-22] MEDS ORDERED: ASPIRIN 325 MG TAB PO ONE (22:02)
--- NOTE | 2020-08-22 22:35 | XRay Report ---
CHEST 1 VIEW INDICATION / CLINICAL INFORMATION: Chest Pain. COMPARISON: 09/16/2019 FINDINGS: SUPPORT DEVICES: None. HEART / MEDIASTINUM: No significant abnormality. LUNGS / PLEURA: No significant pulmonary or pleural abnormality. No pneumothorax. ADDITIONAL FINDINGS: No significant additional findings. IMPRESSION: 1. No acute findings. No interval change. Signer Name: Franchesca Lang MD Signed: 08/22/2020 10:31 PM Workstation Name: [id number]
[2020-08-22] MEDS ORDERED: MORPHINE 2 MG/1 ML INJ IV ONE (22:50)
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
[2020-08-22 23:41] LABS: Blood Urea Nitrogen 11 mg/dL (7-17); Calcium 9.7 mg/dL (8.4-10.2); Hemolysis Index 2
[2020-08-22] MEDS ORDERED: NITROGLYCERIN 2% OINT 1 GM TP ONE (23:41)
[2020-08-22 23:43] LABS: BUN/Creatinine Ratio 18
[2020-08-22 23:50] LABS: Basophils % (Auto) 0.5 % (0.0-1.8); Eosinophils # (Auto) 0.1 K/mm3 (0.0-0.4); Eosinophils % (Auto) 1.9 % (0.0-4.3); Hematocrit 36.6 % (30.3-42.9); Lymphocytes % (Auto) 41.1 % (13.4-35.0); Mean Corpuscular HGB Conc 33 % (30-34); Mean Corpuscular Volume 72 fl (79-97); Monocytes # (Auto) 0.9 K/mm3 (0.0-0.8); Monocytes % (Auto) 12.4 % (0.0-7.3); Platelet Count 298 K/mm3 (140-440); Red Blood Count 5.07 M/mm3 (3.65-5.03); Red Cell Distribution Width 15.5 % (13.2-15.2)
[2020-08-23] MEDS ORDERED: NITROGLYCERIN 0.4 MG TAB SUBL SL PRN (01:17)
[2020-08-23] MEDS ORDERED: MAGNESIUM HYDROXIDE (MOM) ORAL LIQD UDC PO PRN (01:17)
[2020-08-23] MEDS ORDERED: DEXTROSE 50% IN WATER (25GM) 50 ML SYRINGE IV PRN (01:17)
[2020-08-23] MEDS ORDERED: ONDANSETRON 4 MG/2 ML INJ IV PRN (01:17)
[2020-08-23] MEDS ORDERED: ACETAMINOPHEN 325 MG TAB PO PRN ×2 (01:17)
--- NOTE | 2020-08-23 01:33 | History and Physical Report ---
History of Present Illness Date of examination: 08/23/20 Date of admission: 08/23/20 00:43 Chief complaint: Chest Pain History of present illness: 70-year-old female with known history of hypertension, CHF, diabetes mellitus, history of [place] in 2002 and 2012, presenting to the emergency room today complaining of chest pain and shoulder pain. Chest pain was said to have started about 3 days ago and has gotten worse today. She has taken some sublingual nitroglycerin on multiple occasions with some relief. On a scale of 10 chest pain was 10/10 in severity. It is substernal and nonradiating. Patient is unclear whether the shoulder pain is causing the chest pain. Chest pain is worse on exertion and gets better on resting. She has had associated shortness of breath. Denies any nausea vomiting and denies any abdominal pain. Patient denies any headache or dizziness, denies any fever or chills. Work-up in the emergency room today including EKG, chest x-ray and troponin levels has been unremarkable. Patient has been admitted for work-up of her chest pain. Past History Past Medical History: arthritis, CAD, diabetes, GERD, heart failure, hypertension, hyperlipidemia, other (Lupus,Prinzmetal Angina,Chronic back Pain,) Past Surgical History: hysterectomy, Other (Eye surgery in 1999,Laser procedure heart ,Carpal tunnel surgery on right hand, Colonic polyp.) Social history: smoking (Current daily smoker) Family history: no significant family history Medications and Allergies Allergies Allergy/AdvReac Type Severity Reaction Status Date / Time azithromycin [From Zithromax] Allergy Rash Verified 02/21/20 16:31 butorphanol tartrate Allergy Rash Verified 02/21/20 16:31 [From Stadol] cyclobenzaprine HCl Allergy Seizure Verified 02/21/20 16:31 [From Flexeril] ibuprofen [From Motrin] Allergy Vomiting Verified 02/21/20 16:31 meperidine HCl [From Demerol] Allergy Rash Verified 02/21/20 16:31 naproxen Allergy Seizure Verified 02/21/20 16:31 tramadol Allergy Unknown Verified 02/21/20 16:31 acetaminophen [From Tylenol] AdvReac Nausea Verified 02/21/20 16:31 Home Medications Medication Instructions Recorded Confirmed Last Taken Type hydroCHLOROthiazide [HCTZ] 25 mg PO DAILY 02/15/15 07/04/1919 History Albuterol Mdi (or & Nicu Only) 2 puff IH QID PRN #1 inhalation 11/06/17 07/04/19 07/03/19 Rx [ProAir HFA Inhaler] Promethazine [Phenergan SUPPOS] 25 mg [place] Q6HR PRN #10 supp.rect 04/19/18 07/04/19 07/03/19 Rx Aspirin [Aspirin BABY CHEW TAB] 81 mg PO ONCE #30 tab.chew 07/05/19 Unknown Rx AtorvaSTATin [Lipitor] 40 mg PO QHS #30 tablet 07/05/19 Unknown Rx Famotidine [Pepcid] 20 mg PO BID #30 tablet 07/05/19 Unknown Rx metFORMIN [Glucophage] 500 mg PO BID #60 tablet 07/05/19 Unknown Rx Acetaminophen/Codeine [Tylenol 1 tab PO Q6H PRN #12 tab 09/16/19 Unknown Rx /Codeine # 3 tab] Benzonatate [Tessalon Perles] 100 mg PO Q8HR PRN #20 capsule 09/16/19 Unknown Rx methylPREDNISolone [Medrol 4MG 4 mg PO DAILY #21 tab.ds.pk 11/07/19 Unknown Rx DOSEPAK (21 tabs)] oxyCODONE /ACETAMINOPHEN [Percocet 1 tab PO Q6HR PRN #10 tablet 02/21/20 Unknown Rx 5/325 mg] Active Meds: Active Medications Acetaminophen (Tylenol) 650 mg PO Q4H PRN PRN Reason: Pain MILD(1-3)/Fever >100.5/MERA Acetaminophen (Tylenol) 650 mg PO Q6H PRN PRN Reason: Pain, Mild (1-3) Aspirin (Ecotrin) 325 mg PO QDAY ALFONSO Dextrose (D50w (25gm) Syringe) 50 ml IV Q30MIN PRN; Protocol PRN Reason: Hypoglycemia Dextrose (D50w (25gm) Syringe) 50 ml IV Q30MIN PRN; Protocol PRN Reason: Hypoglycemia Enoxaparin Sodium (Enoxaparin) 40 mg SUB-Q QDAY@2200 ALFONSO; Protocol Insulin Human Lispro (Humalog) 0 unit SUB-Q ACHS ALFONSO; Protocol Magnesium Hydroxide (Milk Of Magnesia) 30 ml PO Q4H PRN PRN Reason: Constipation Morphine Sulfate (Morphine) 2 mg IV Q5MIN PRN PRN Reason: Chest Pain Nitroglycerin (Nitrostat) 0.4 mg SL Q5M PRN PRN Reason: Chest Pain Ondansetron HCl (Zofran) 4 mg IV Q8H PRN PRN Reason: Nausea And Vomiting Sodium Chloride (Sodium Chloride Flush Syringe 10 Ml) 10 ml IV BID ALFONSO Sodium Chloride (Sodium Chloride Flush Syringe 10 Ml) 10 ml IV PRN PRN PRN Reason: LINE FLUSH Sodium Chloride (Sodium Chloride Flush Syringe 10 Ml) 10 ml IV PRN PRN PRN Reason: LINE FLUSH Review of Systems Constitutional: no fever, no chills Ears, nose, mouth and throat: no nasal congestion, no sore throat Cardiovascular: chest pain, no palpitations Respiratory: no cough, no shortness of breath Gastrointestinal: no abdominal pain, no nausea, no vomiting, no diarrhea Genitourinary Female: no flank pain, no dysuria, no hematuria Musculoskeletal: no neck pain, no low back pain Integumentary: no rash, no pruritis Neurological: no headaches, no confusion Psychiatric: no anxiety, no depression Exam - Constitutional Vitals: Temp Pulse Resp BP Pulse Ox 98.1 F 77 18 129/39 98 08/22/20 23:35 08/23/20 00:08 08/22/20 23:35 08/23/20 00:08 08/22/20 23:35 General appearance: Present: no acute distress, well-nourished - EENT Eyes: Present: PERRL, EOM intact. Absent: scleral icterus ENT: hearing intact, clear oral mucosa, dentition normal - Neck Neck: Present: supple, normal ROM - Respiratory Respiratory effort: normal Respiratory: bilateral: CTA - Cardiovascular Rhythm: regular Heart Sounds: Present: S1 & S2. Absent: gallop, systolic murmur, diastolic murmur, rub - Extremities Extremities: no ischemia, pulses intact, pulses symmetrical, No edema, Full ROM Peripheral Pulses: within normal limits - Abdominal General gastrointestinal: Present: soft, non-tender, non-distended, normal bowel sounds. Absent: mass - Integumentary Integumentary: Present: clear, warm, dry - Musculoskeletal Musculoskeletal: strength equal bilaterally - Psychiatric Psychiatric: appropriate mood/affect, intact judgment & insight, memory intact, cooperative - Neurologic Neurologic: CNII-XII intact, no focal deficits, moves all extremities HEART Score - HEART Score History: Moderately suspicious EKG: Non-specific Age: > 65 Risk factors: > 3 risk factors or hx of atherosclerotic disease Troponin: Troponin T < 0.010 ng/mL (0.00-0.029) 08/22/20 23:00 Troponin: > 3x normal limit HEART Score: 8 Results - Labs CBC & Chem 7: 08/22/20 23:00 08/22/20 23:00 Labs: Abnormal lab results 08/22/20 08/22/20 Range/Units 23:00 23:00 RBC 5.07 H (3.65-5.03) M/mm3 MCV 72 L (79-97) fl MCH 24 L (28-32) pg RDW 15.5 H (13.2-15.2) % Lymph % (Auto) 41.1 H (13.4-35.0) % [place] % (Auto) 12.4 H (0.0-7.3) % [place] # (Auto) 0.9 H (0.0-0.8) K/mm3 Carbon Dioxide 32 H (22-30) mmol/L Glucose 108 H (65-100) mg/dL Assessment and Plan - Patient Problems (1) Acute chest pain Current Visit: Yes Status: Acute Plan to address problem: Patient admitted and placed on telemetry. Will check serial cardiac enzymes. We will place patient on aspirin, sublingual nitroglycerin and IV morphine as needed for chest pain. We will request cardiology evaluation and recommendation. (2) GERD (gastroesophageal reflux disease) Current Visit: No Status: Acute Plan to address problem: We will resume routine home medications . (3) Diabetes Current Visit: No Status: Chronic Plan to address problem: We will monitor Accu-Cheks. (4) HTN (hypertension) Current Visit: No Status: Chronic Qualifiers: Hypertension type: essential hypertension Qualified Code(s): I10 - Essential (primary) hypertension Plan to address problem: We will resume routine home medications and monitor vital signs closely. (5) Morbid obesity Current Visit: No Status: Chronic Plan to address problem: We will place dietary consult for evaluation. (6) DVT prophylaxis Current Visit: No Status: Acute Plan to address problem: Patient placed on subcutaneous heparin. (7) Full code status Current Visit: Yes Status: Acute
[2020-08-23] MEDS ORDERED: MORPHINE 2 MG/1 ML INJ ONE (01:38)
[2020-08-23] MEDS: MORPHINE 2 MG/1 ML INJ IV PRN ×2 (01:41→05:42)
[2020-08-23] MEDS ORDERED: PROMETHAZINE 25 MG RECT SUPP PR PRN (04:58)
[2020-08-23] MEDS ORDERED: oxyCODONE /ACETAMINOPHEN 5-325MG TAB PO ONE (05:25)
[2020-08-23] MEDS ORDERED: INSULIN LISPRO 100 UNIT/ML VIAL 3 mL SUB-Q SCH (07:30)
[2020-08-23 08:03] LABS: Basophils % (Auto) 0.7 % (0.0-1.8); Eosinophils # (Auto) 0.2 K/mm3 (0.0-0.4); Eosinophils % (Auto) 2.8 % (0.0-4.3); Hematocrit 34.5 % (30.3-42.9); Hemoglobin 11.2 gm/dl (10.1-14.3); Lymphocytes # (Auto) 2.4 K/mm3 (1.2-5.4); Lymphocytes % (Auto) 40.8 % (13.4-35.0); Mean Corpuscular HGB Conc 32 % (30-34); Mean Corpuscular Volume 73 fl (79-97); Monocytes # (Auto) 0.6 K/mm3 (0.0-0.8); Monocytes % (Auto) 10.8 % (0.0-7.3); Platelet Count 271 K/mm3 (140-440); Red Blood Count 4.76 M/mm3 (3.65-5.03); Red Cell Distribution Width 15.9 % (13.2-15.2)
[2020-08-23] MEDS ORDERED: REGADENOSON 0.4 MG/5 ML INJ IV ONE (08:04)
[2020-08-23 08:18] LABS: Blood Urea Nitrogen 8 mg/dL (7-17); Calcium 9.2 mg/dL (8.4-10.2); HDL Cholesterol 60 mg/dL (40-59); Hemolysis Index 5; LDL Cholesterol,Direct 77 mg/dL (50-130)
[2020-08-23 08:19] LABS: BUN/Creatinine Ratio 13
--- NOTE | 2020-08-23 10:36 | Consultation ---
History of Present Illness Consult reason: chest pain History of present illness: 70-year-old -[place] female presenting with bilateral shoulder pain and neck pain for 3 days with no real relief using sublingual nitroglycerin. Patient presented to the emergency room and was admitted for further evaluation. She does have a history of coronary artery disease and gives a history of having a cardiac catheterization done in the past with stent placement. She however had a Lexiscan thallium scan done in 2019 approximately 1 year ago which was negative. Past History Past Medical History: arthritis, CAD, diabetes, GERD, heart failure, hypertension, hyperlipidemia, other (Lupus,Prinzmetal Angina,Chronic back Pain,) Past Surgical History: hysterectomy, Other (Eye surgery in 1999, Carpal tunnel surgery on right hand, Colonic polyp.) Social history: smoking (Current daily smoker) Family history: no significant family history Medications and Allergies Allergies Allergy/AdvReac Type Severity Reaction Status Date / Time azithromycin [From Zithromax] Allergy Rash Verified 02/21/20 16:31 butorphanol tartrate Allergy Rash Verified 02/21/20 16:31 [From Stadol] cyclobenzaprine HCl Allergy Seizure Verified 02/21/20 16:31 [From Flexeril] ibuprofen [From Motrin] Allergy Vomiting Verified 02/21/20 16:31 meperidine HCl [From Demerol] Allergy Rash Verified 02/21/20 16:31 naproxen Allergy Seizure Verified 02/21/20 16:31 tramadol Allergy Unknown Verified 02/21/20 16:31 acetaminophen [From Tylenol] AdvReac Nausea Verified 02/21/20 16:31 Home Medications Medication Instructions Recorded Confirmed Last Taken Type hydroCHLOROthiazide [HCTZ] 25 mg PO DAILY 02/15/15 07/04/19 07/03/19 History Albuterol Mdi (or & Nicu Only) 2 puff IH QID PRN #1 inhalation 11/06/17 07/04/19 07/03/19 Rx [ProAir HFA Inhaler] Promethazine [Phenergan SUPPOS] 25 mg [place] Q6HR PRN #10 supp.rect 04/19/18 07/04/19 07/03/19 Rx Aspirin [Aspirin BABY CHEW TAB] 81 mg PO ONCE #30 tab.chew 07/05/19 Unknown Rx AtorvaSTATin [Lipitor] 40 mg PO QHS #30 tablet 07/05/19 Unknown Rx Famotidine [Pepcid] 20 mg PO BID #30 tablet 07/05/19 Unknown Rx metFORMIN [Glucophage] 500 mg PO BID #60 tablet 07/05/19 Unknown Rx Acetaminophen/Codeine [Tylenol 1 tab PO Q6H PRN #12 tab 09/16/19 Unknown Rx /Codeine # 3 tab] Benzonatate [Tessalon Perles] 100 mg PO Q8HR PRN #20 capsule 09/16/19 Unknown Rx methylPREDNISolone [Medrol 4MG 4 mg PO DAILY #21 tab.ds.pk 11/07/19 Unknown Rx DOSEPAK (21 tabs)] oxyCODONE /ACETAMINOPHEN [Percocet 1 tab PO Q6HR PRN #10 tablet 02/21/20 Unknown Rx 5/325 mg] Active Meds: Active Medications Acetaminophen (Tylenol) 650 mg PO Q4H PRN PRN Reason: Pain MILD(1-3)/Fever >100.5/MERA Aspirin (Ecotrin) 325 mg PO QDAY [facility] Dextrose (D50w (25gm) Syringe) 0 ml IV Q30MIN PRN; Protocol PRN Reason: Hypoglycemia Enoxaparin Sodium (Enoxaparin) 40 mg SUB-Q QDAY@2200 ALFONSO; Protocol Insulin Human Lispro (Humalog) 0 unit SUB-Q ACHS ALFONSO; Protocol Magnesium Hydroxide (Milk Of Magnesia) 30 ml PO Q4H PRN PRN Reason: Constipation Morphine Sulfate (Morphine) 2 mg IV Q5MIN PRN PRN Reason: Chest Pain Last Admin: 08/23/20 05:42 Dose: 2 mg Documented by: Nitroglycerin (Nitrostat) 0.4 mg SL Q5M PRN PRN Reason: Chest Pain Ondansetron HCl (Zofran) 4 mg IV Q8H PRN PRN Reason: Nausea And Vomiting Promethazine HCl (Phenergan) 25 mg [place] Q6H PRN PRN Reason: Nausea And Vomiting Last Admin: 08/23/20 05:43 Dose: 25 mg Documented by: Sodium Chloride (Sodium Chloride Flush Syringe 10 Ml) 10 ml IV BID ALFONSO Sodium Chloride (Sodium Chloride Flush Syringe 10 Ml) 10 ml IV PRN PRN PRN Reason: LINE FLUSH Review of Systems Constitutional: no weight loss, no weight gain, no sweats, no anorexia, no fatigue, no weakness Ears, nose, mouth and throat: no ear pain, no ear discharge, no tinnitis, no nose pain, no epistaxis, no bleeding gums, no hoarseness Breasts: normal Cardiovascular: no chest pain, no orthopnea, no palpitations, no edema, no shortness of breath, no claudication, no leg edema Respiratory: no cough, no cough with sputum, no shortness of breath, no congestion, no wheezing, no pleurisy Gastrointestinal: no abdominal pain, no vomiting, no diarrhea, no constipation, no hematemesis, no melena, no hematochezia, no loss of appetite, no indigestion Genitourinary Female: no dysmenorrhea, no pelvic pain, no flank pain Rectal: no pain, no incontinence, no bleeding Musculoskeletal: no neck stiffness, no neck pain, no low back pain, no redness of joints Integumentary: no rash, no pruritis, no redness, no bullae, no lesions Neurological: no head injury, no transient paralysis, no paralysis, no weakness, no parathesias Endocrine: no cold intolerance, no heat intolerance, no polyphagia, no excessive thirst, no polydipsia, no polyuria Hematologic/Lymphatic: no easy bruising Allergic/Immunologic: no urticaria, no allergic rhinitis, no wheezing Physical Examination Vital Signs Temp Pulse Resp BP Pulse Ox 98.4 F 96 H 20 147/73 97 08/22/20 21:58 08/22/20 21:58 08/22/20 21:58 08/22/20 21:58 08/22/20 21:58 General appearance: no acute distress, obese Results 08/23/20 07:29 08/23/20 07:29 Lipids 08/23/20 Range/Units 07:29 Triglycerides 84 (2-149) mg/dL Cholesterol 150 (50-199) mg/dL HDL Cholesterol 60 H (40-59) mg/dL Cholesterol/HDL Ratio 2.50 % CBC 08/22/20 08/23/20 Range/Units 23:00 07:29 WBC 7.4 6.0 (4.5-11.0) K/mm3 RBC 5.07 H 4.76 (3.65-5.03) M/mm3 Hgb 12.0 11.2 (10.1-14.3) gm/dl Hct 36.6 34.5 (30.3-42.9) % Plt Count 298 271 (140-440) K/mm3 Lymph # (Auto) 3.0 2.4 (1.2-5.4) K/mm3 [place] # (Auto) 0.9 H 0.6 (0.0-0.8) K/mm3 Eos # (Auto) 0.1 0.2 (0.0-0.4) K/mm3 Baso # (Auto) 0.0 0.0 (0.0-0.1) K/mm3 Comprehensive Metabolic Panel 08/22/20 08/23/20 Range/Units 23:00 07:29 Sodium 144 141 (137-145) mmol/L Potassium 3.9 3.6 (3.6-5.0) mmol/L Chloride 102.3 99.5 (98-107) mmol/L Carbon Dioxide 32 H 36 H (22-30) mmol/L BUN 11 8 (7-17) mg/dL Creatinine 0.6 0.6 (0.6-1.2) mg/dL Glucose 108 H 93 (65-100) mg/dL Calcium 9.7 9.2 (8.4-10.2) mg/dL Assessment and Plan 1. Musculoskeletal chest wall and shoulder pain and. 2. History of coronary artery disease with a history of PCI in the past 3. Type 2 diabetes mellitus 4. Essential hypertension 5. Hyperlipidemia 6. GERD 7. Lupus erythematosus Patient is currently stable patient symptoms not consistent with acute coronary syndrome most likely musculoskeletal in origin serum troponin levels are normal patient has already been scheduled for an echo and stress MPI which will be done would however recommend treatment with muscle relaxants and nonsteroidal anti- inflammatory drugs as needed.
--- NOTE | 2020-08-23 10:43 | Event Note ---
Date: 08/23/20 Lexiscan MPI done today negative for ischemic CAD Echocardiogram shows mild concentric LVH with normal global and regional LV function.
--- NOTE | 2020-08-23 11:37 | Event Note ---
Date: 08/23/20 This a 70 year old female patient who came to ED with worsening chest pain and and shoulder pain. She reports her chest pain started 3 days ago and she took multiple nitro multiple times over the last 3 days which gives her some temporary relief of her chest pain. She reports she takes daily aspirin. Forensic Science Technician consulted Reviewed hazardous substances scientist note and reces Lexiscan MPI done today negative for ischemic CAD Echocardiogram shows mild concentric LVH with normal global and regional LV function.
[2020-08-23 12:10] VITALS: BP 139/83
--- NOTE | 2020-08-23 12:11 | Discharge Summary ---
<RAINER ABDI - Last Filed: 08/23/20 14:25> Providers - Providers Date of Admission: 08/23/20 00:43 Attending physician: RAINER ABDI 08/23/20 Consult to Cardiac Rehabilitation [CONS] Routine Reason For Exam: Phase I 08/23/20 01:17 Consult to Cardiology [CONS] Routine Consulting Provider: ALIRIO MELENDREZ Reason For Exam: chest pain Consult to Dietitian/Nutrition [CONS] Routine Physician Instructions: Reason For Exam: Reason for Consult: Diet education Primary care physician: BINDERY HELPER Hospitalization Condition: Critical Disposition: DC-01 TO HOME OR SELFCARE Exam - Constitutional Vitals: Temp Pulse Resp BP Pulse Ox 98.2 F 66 18 139/83 98 08/23/20 12:08 08/23/20 12:08 08/23/20 12:08 08/23/20 12:08 08/23/20 12:08 Plan Follow up with: AMMON GIBBS MD [Primary Care Provider] - 7 Days MEAGHAN BOBO MD [Staff Physician] - 7 Days Prescriptions: AtorvaSTATin [Lipitor] 40 mg PO QHS 30 Days #30 tablet Aspirin [Aspirin BABY CHEW TAB] 81 mg PO ONCE #30 tab.chew metFORMIN [Glucophage] 500 mg PO BID 30 Days #60 tablet hydroCHLOROthiazide [HCTZ] 25 mg PO DAILY 30 Days #30 methylPREDNISolone [Medrol 4MG DOSEPAK (21 tabs)] 4 mg PO DAILY #21 tab.ds.pk Nitroglycerin [Nitrostat] 0.4 mg SL Q5M PRN #30 tablet PRN Reason: Chest Pain Famotidine [Pepcid] 20 mg PO BID 60 Days #30 tablet <DEE COTTER - Last Filed: 08/23/20 15:54> Providers - Providers Date of Admission: 08/23/20 00:43 Date of discharge: 08/23/20 Attending physician: RAINER ABDI 08/23/20 Consult to Cardiac Rehabilitation [CONS] Routine Reason For Exam: Phase I 08/23/20 01:17 Consult to Cardiology [CONS] Routine Consulting Provider: ALIRIO MELENDREZ Reason For Exam: chest pain Consult to Dietitian/Nutrition [CONS] Routine Physician Instructions: Reason For Exam: Reason for Consult: Diet education Primary care physician: BINDERY HELPER Hospitalization Hospital course: This a 70 year old female patient who came to ED with worsening chest pain and and shoulder pain. She reports her chest pain started 3 days ago and she took multiple nitro multiple times over the last 3 days which gives her some temporary relief of her chest pain. She reports she takes daily aspirin. Hearing Aid Assembly Supervisor consulted: Reviewed oil well fishing tool operator note and reces Lexiscan MPI done today negative for ischemic CAD Echocardiogram shows mild concentric LVH with normal global and regional LV function (1) Acute chest pain Current Visit: Yes Status: Acute Plan to address problem: Started on aspirin, sublingual nitroglycerin and IV morphine as needed for chest pain. cardiology evaluation and recommendation. (2) GERD (gastroesophageal reflux disease) Current Visit: No Status: Acute Plan to address problem: resumed routine home medications . (3) Diabetes Current Visit: No Status: Chronic Plan to address problem: Accu-Cheks. (4) HTN (hypertension) Current Visit: No Status: Chronic Qualifiers: Hypertension type: essential hypertension Qualified Code(s): I10 - Essential (primary) hypertension Plan to address problem: resumed routine home medications and monitor vital signs closely. (5) Morbid obesity Current Visit: No Status: Chronic Plan to address problem: Discussed lifestyle modification healthy diet and weight management 08/23/20 Patient seen at bedside eating lunch. Patient on room air. She denies any distress. She said she came beecause she was having chest discomfort/pain and left shoulder pain. She reports hx of chronic back and shoulder pain and on pain management program. patient advised to f/u with pain management doctor and her PCP Patient also advised to follow up with oil well fishing tool operator. She denies hx of anxiety and depression. Patient is discharged and she medically stable at time of discharge assessment. Core Measure Documentation - Palliative Care Palliative Care/ Comfort Measures: Not Applicable - Core Measures Any of the following diagnoses?: none Exam - Constitutional Vitals: Temp Pulse Resp BP Pulse Ox 97.5 F L 71 20 129/64 98 08/23/20 02:52 08/23/20 02:52 08/23/20 05:42 08/23/20 09:21 08/23/20 02:52 General appearance: Present: no acute distress, obese - EENT Eyes: Present: PERRL ENT: hearing intact, clear oral mucosa - Neck Neck: Present: supple, normal ROM - Respiratory Respiratory effort: normal Respiratory: bilateral: CTA - Cardiovascular Heart rate: 72 Heart Sounds: Present: S1 & S2. Absent: rub, click - Extremities Extremities: pulses symmetrical, No edema Peripheral Pulses: within normal limits - Abdominal General gastrointestinal: Present: soft, non-tender, non-distended, normal bowel sounds Female genitourinary: Present: normal - Integumentary Integumentary: Present: clear, warm, dry - Musculoskeletal Musculoskeletal: gait normal, strength equal bilaterally - Psychiatric Psychiatric: appropriate mood/affect, intact judgment & insight - Neurologic Neurologic: CNII-XII intact, moves all extremities - Allied Health Allied health notes reviewed: nursing Plan Diet: low fat, low cholesterol, low salt Special Instructions: other
[2020-08-23] MEDS ORDERED: ENOXAPARIN 40 MG/0.4 ML INJ SUB-Q SCH (22:00)
[2020-08-24] MEDS ORDERED: ASPIRIN EC 325 MG TAB PO SCH (10:00)
--- NOTE | 2020-08-25 16:52 | Treadmill Report ---
THALLIUM STRESS TEST REPORT LEFT VENTRICLE: Left ventricular chamber size is within normal spread. Perfusion study demonstrates normal apical thinning, otherwise homogeneous uptake of the tracer in all segments, no significant defects identified. Gated analysis demonstrates normal left ventricular systolic function, ejection fraction 69%. CONCLUSION: Normal myocardial perfusion study. JOB# [id number] CA/NTS
== END 2020-08-23 14:02 | disposition home or self-care (01) ==
LOC: ED 21:29 → 4A 08-23 00:43
PROVIDERS: ADMIT Internal Medicine Geriatric Medicine; ATTEND Internal Medicine
DX: R07.89 Other chest pain (principal); K21.9 Gastro-esophageal reflux disease without esophagitis; I11.0 Hypertensive heart disease with heart failure; I50.9 Heart failure, unspecified; E11.9 Type 2 diabetes mellitus without complications; E66.01 Morbid (severe) obesity due to excess calories; E78.5 Hyperlipidemia, unspecified; M19.90 Unspecified osteoarthritis, unspecified site; I25.10 Atherosclerotic heart disease of native coronary artery without angina pectoris; J45.909 Unspecified asthma, uncomplicated; M32.9 Systemic lupus erythematosus, unspecified; F17.200 Nicotine dependence, unspecified, uncomplicated; Z79.82 Long term (current) use of aspirin; Z87.442 Personal history of urinary calculi; Z90.49 Acquired absence of other specified parts of digestive tract; Z98.51 Tubal ligation status; Z90.710 Acquired absence of both cervix and uterus; Z98.890 Other specified postprocedural states; Z79.4 Long term (current) use of insulin; Z68.38 Body mass index [BMI] 38.0-38.9, adult
CPT/HCPCS: 36415; 71045; 78452; 80048; 80061; 82962; 84484; 85025; 93005; 93017; 93306; 96374; 96376; 99291; A9502; G0378; J2270; J2785

== ENCOUNTER 2020-11-19 15:03 | Emergency (ER) | payer MEDICARE ==
[2020-11-19 15:12] VITALS: BP 170/71
--- NOTE | 2020-11-19 15:17 | Emergency Department Report ---
Chief Complaint: Nosebleed Stated Complaint: NOSE BLEED, LEFT SIDE PAIN Time Seen by Provider: 11/19/20 15:08 - HPI History of Present Illness: Patient is a 70-year-old -[place] female that comes to the emergency room after having a left nasal nosebleed. Bleeding stopped by the time she got to the emergency room. She takes aspirin as needed at home. She is on no blood thinners. She states that she has a tendency to pick her nose and she picked a clot to c lean and her nose started to bleed. It alarmed her so she came to the ER. She has no other bleeding. Patient is alert and oriented in no acute distress in the ER. - ROS Review of Systems: None at this time, nosebleed resolved - Exam Vital Signs: Vital Signs 11/19/20 15:06 Temperature 98.2 F Pulse Rate 91 H Respiratory 18 Rate Blood Pressure 170/71 O2 Sat by Pulse 98 Oximetry Physical Exam: Alert and oriented x4 S1-S2 Lungs clear to auscultation abdomen soft nontender No CVA tenderness MSE screening note: Focused history and physical exam performed. Due to findings the following was ordered: Patient discharged home with discharge instructions for nosebleeds. She will follow-up with her PCP. There is no life-threatening issues at the current time. No chest pain shortness of breath. No fever or chills. Vital signs are normal. Patient discussed with doctor:: HEATHER NIXON ED Disposition for MSE Clinical Impression: Bleeding nose Disposition: Z-07 MED SCREENING EXAM-LEFT Is pt being admited?: No Does the pt Need Aspirin: No Condition: Stable Additional Instructions: follow up with pcp if nose bleeds- pressure, ice no aspirin tonight no motrin tonight Referrals: DEBBIE PAZ MD [Staff Physician] - 3-5 Days Time of Disposition: 15:15
== END 2020-11-19 16:48 | disposition left against medical advice (07) ==
LOC: ED 15:03
DX: R04.0 Epistaxis (principal); Z53.21 Procedure and treatment not carried out due to patient leaving prior to being seen by health care provider